=== PATIENT | male | born 1985 | race Caucasian/White ===

== ENCOUNTER 2018-07-31 19:45 | Inpatient (IN) | payer SELFPAY ==
[2018-07-31 20:40] LABS: Bilirubin Negative (Negative); Blood, Urine Moderate (Negative); Clarity CLEAR (Clear); Glucose, Urine (Dipstick) 250 mg/dL (Negative); Leukocyte Negative (Negative); Nitrite Negative (Negative); Protein, Urine (Dipstick) 300 mg/dL (Neg-Trace); Specific Gravity, Urine 1.013 (1.002-1.036); Urobilinogen 0.2 mg/dL (0.2-1.0); pH, Urine 6.5 (5.0-9.0)
[2018-07-31 20:41] LABS: Bacteria/HPF None Seen HPF (None Seen); Hyaline Casts/LPF 4-6 HYALINE CAST LPF (0-3 Hyaline); Pathc Cast-AUWi Flag 0.58 (0-2.49); Squamous Epithelial 0-3 HPF (0-3)
[2018-07-31 20:55] LABS: Acetaminophen Less than 6.0 mcg/mL (10.0-30.0); Alcohol Less than 10 mg/dL (Less than 10); Salicylate Less than 8.0 mg/dL (15.0-30.0)
[2018-07-31 20:59] LABS: CKMB 4.9 ng/mL (0-6.6)
[2018-07-31] MEDS ORDERED: Heparin 25,000 units/D5W 500 ML ONE (21:03)
[2018-07-31] MEDS ORDERED: Heparin 10,000 UNITS/ 10 ML VIAL SLOW IVP SCH (21:15)
[2018-07-31] MEDS ORDERED: Ondansetron PF 4 MG/2 ML Vial IVP PRN (21:16)
[2018-07-31] MEDS ORDERED: Nitroglycerin 0.4 MG TAB (25 Tab Bottle) PO PRN (21:21)
[2018-07-31] MEDS ORDERED: Aspirin 325 MG TAB PO SCH (21:30)
[2018-07-31] MEDS ORDERED: HumaLOG 300 UNITS/3 ML VIAL SC PRN (21:42)
[2018-07-31] MEDS ORDERED: Dextrose 5% in Water 1,000 ML IV PRN (21:42)
[2018-07-31] MEDS ORDERED: Dextrose 50% Abboject 50 ML SYRINGE SLOW IVP PRN (21:42)
--- NOTE | 2018-07-31 22:27 | HP ---
PRIMARY CARE PHYSICIAN: [facility]. TIME OF EVALUATION: 9:00 p.m. CODE STATUS: FULL CODE. CHIEF COMPLAINT: Chest pain. HISTORY OF PRESENT ILLNESS: This is a 32-year-old male patient, who has past medical history of hypertension, diabetes, came to the hospital after having sharp, severe, 10/10 chest pain that was retrosternal, radiating to the right upper extremity with no clear triggers, no alleviating factors. Symptoms started around 4:00 a.m., has been on and off, got so severe, he decided to go to the ER associated with sweating. REVIEW OF SYSTEMS: Constitutional: The patient had no fever, chills or generalized weakness. He did report some sweating with the pain. Respiratory: No cough. No shortness of breath. Cardiovascular: Chest pain, no palpitation. Gastrointestinal: No nausea, vomiting, diarrhea or abdominal pain. 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 Genitourinary: No burning with urination. Extremities: No leg swelling. All other systems were reviewed are negative except for the findings mentioned above. PAST MEDICAL HISTORY: Mentioned in the HPI. FAMILY HISTORY: The patient's mother has a history of CVA. Father has a history of heart problems. PAST SURGICAL HISTORY: No surgical history. PSYCHIATRIC HISTORY: No psych history. SOCIAL HISTORY: The patient has a history of alcoholism reported, but he quit 3 years ago. Currently uses marijuana and as well as cigarettes. ALLERGIES: No known drug allergies. REPORTED MEDICATIONS: None. PHYSICAL EXAMINATION: VITAL SIGNS: On presentation, blood pressure 223/124, heart rate 114, respiratory rate was 20. Pain was 5/10. GENERAL APPEARANCE: The patient is alert, oriented, no acute distress. HEENT: Normal. ENT: Moist oral mucosa, anicteric. NECK: No JVD. RESPIRATORY: Bilateral air entry. No rales, no wheezes. Symmetric expansion. CARDIOVASCULAR: Normal rate, regular rhythm. No murmurs, no gallop. No edema. The patient was hypertensive. ABDOMEN: Soft, normal bowel sounds. MUSCULOSKELETAL: Baseline range of motion and strength. No tenderness. SKIN: Warm and intact. No pallor, no rash, no redness. Peripheral pulses are present. Capillary refill seems to be intact. NEUROLOGIC: No evidence of any new focal weakness. Baseline speech. Cranial nerves seem to be intact. PSYCHIATRIC: The patient is in good mood. No anxiety, oriented, optimal judgment. IMAGING: EKG was reviewed by myself and discussed with the ER provider. The patient was in sinus tachycardia at the rate of 110. No evidence of any acute ischemic event. Chest x-ray was reviewed. The patient has no acute cardiopulmonary process. LABORATORY DATA: Reviewed. Hematology: White count 13.9, hemoglobin 12.4, MCV 82, platelet count 258. D-dimer was 0.56. Chemistry: Sodium 139, potassium 4.3, chloride 109, carbon dioxide was 22, anion gap 12, BUN 41, creatinine 5.68, glucose 115. Lactic acid 0.6, magnesium 2.2, AST 18, ALT 12. Troponin 0.010. Beta natriuretic peptide 251. Lipase was normal. Urine was done. The patient has a white count 4-6 with 7 rbc's. Toxicology was done. The patient has negative alcohol, acetaminophen, and salicylates. ASSESSMENT AND PLAN: The patient will be placed in the hospital with the following medical problems. 1. Hypertensive urgency. The patient has severe high blood pressure. The patient reportedly has no insurance, has not been taking medication for that reason. We will restart home meds, will put the patient on IV p.r.n. medications. 2. Chest pain, rule out acute coronary syndrome. The patient is diabetic, the patient has hypertension, we will do a stress test in the morning. Initial workup is negative. We will trend troponins and we will monitor on tele. 3. Diabetes is uncontrolled. Blood sugar 122. We will place the patient on sliding scale. 4. Chronic kidney disease, BUN 41, creatinine 5.68, we do not have previous creatinine to compare, we will hydrate, will monitor kidney function, might need Nephrology consistently. The patient is not improving. 5. Elevated D-dimer. The patient had a V/Q scheduled in a.m. placed inheparin drip for this reason, can be d/c if pe is ruled out. 6. Deep venous thrombosis prophylaxis. The patient has been placed on heparin drip, will continue for now. MTDD
[2018-07-31] MEDS: Sodium Chloride 0.9% 1,000 ML IV SCH (23:00)
[2018-07-31 23:43] LABS: Troponin I Less than 0.010 ng/mL (< 0.028)
[2018-07-31] MEDS ORDERED: Heparin 25,000 units/D5W 500 ML IV SCH (23:45)
[2018-07-31 23:46] VITALS: BMI 22.4
[2018-08-01] MEDS: Acetaminophen 325 MG TAB PO PRN ×2 (00:28→17:32)
[2018-08-01 02:38] LABS: #Basophils 0.1 thou/uL (0.0-0.2); #Eosinphils 0.4 thou/uL (0.0-0.7); #Lymphocytes 4.4 thou/uL (1.20-3.40); #Monocytes 0.5 thou/uL (0.11-0.59); #Neutrophils 5.7 thou/uL (1.40-6.50); %Basophils 0.9 % (0.0-1.0); %Eosinophils 3.2 % (0.0-10.0); %Lymphocytes 39.6 % (21.0-51.0); %Monocytes 4.9 % (0.0-10.0); %Neutrophils 51.4 % (42.0-75.0); Hemoglobin 9.3 g/dL (14.0-18.0); Mean Corpuscular HGB CONC 33.7 g/dL (32.0-36.0); Mean Corpuscular Hemoglobin 28.4 pg (27.0-31.0); Mean Corpuscular Volume 84.1 fL (78.0-98.0); Mean Platelet Volume 8.6 fL (7.4-10.4); Platelet Count 194 thou/uL (130-400); RBC Distribution Width 12.2 % (11.5-14.5); Red Blood Cell (RBC) Count 3.29 mill/uL (4.70-6.10); White Blood Cell (WBC) Count 11.1 thou/uL (4.8-10.8)
[2018-08-01 02:58] LABS: Troponin I Less than 0.010 ng/mL (< 0.028)
[2018-08-01 02:59] LABS: Anion Gap 11 mmol/L (10-20); BUN (Urea Nitrogen) 42 mg/dL (8.9-20.6); Calc. Creatinine Clearance 22 mL/min (70-130); Calcium 8.3 mg/dL (7.8-10.44); Carbon Dioxide 19 mmol/L (22-29); Chloride 112 mmol/L (98-107); Estimated GFR-MDRD 13; Glucose 184 mg/dL (70-105); Potassium 3.9 mmol/L (3.5-5.1); Sodium 138 mmol/L (136-145)
--- NOTE | 2018-08-01 03:23 | CON ---
DATE OF CONSULTATION: 07/31/2018 REASON FOR CONSULTATION: Elevated creatinine. HISTORY OF PRESENT ILLNESS: This is a 32-year-old gentleman with a history of diabetes mellitus with diabetic retinopathy, presented to the hospital for chest pain. The patient was noted to have a cre atinine of 5.6. The patient has not had a Nephrology followup in 1 year. The patient denies nausea, vomiting or chest pain. PAST MEDICAL HISTORY: Significant for diabetes mellitus with blindness, CKD, hypertension. FAMILY HISTORY: Negative for ESRD. ALLERGIES: Reviewed. HOME MEDICATIONS: Reviewed. REVIEW OF SYSTEMS: A 15-point review of systems was performed and negative except positives noted ab ove. General: Weakness. Head: Headache. Neck: No swelling or lumps. Nose: No epistaxis or dis charge. Eyes: No diplopia or pain. Respiratory: Dyspnea. Cardiovascular: Chest pain. Gastroint estinal: Nausea. /ELECTROMATIC TYPIST: Hematuria. Musculoskeletal: No joint pain. Neuropsychiatric systems: No suicidal ideation. No ideation. Skin: Denies any rash or ulcer. Constitutional: No fever or chills. PHYSICAL EXAMINATION: GENERAL: The patient is awake and alert. VITAL SIGNS: Afebrile, pulse 113, breathing at 16, blood pressure was 194/150. GENERAL APPEARANCE AND MENTAL STATUS: Fair. HEAD/NECK: Normocephalic. Atraumatic. EYES: EOMI. No deformity. EARS: Clear. No ulcers. NOSE: Intact. No lesions. MOUTH: Clear. No discharge. THROAT: Clear. No exudate. LUNGS: Clear. No crackles. CARDIAC: S1, S2. No rub. ABDOMEN: Benign. BS+. GENITALIA/RECTUM: Aguirre absent. BACK/EXTREMITIES: Edema 0+ Ulcer-. NEUROLOGICAL: Alert and motor intact. SKIN: Rash- Bruise-. LYMPHATICS: Edema- Ulcer-. LABORATORY DATA: Show creatinine 5.6. ASSESSMENT AND RECOMMENDATIONS: 1. Chronic kidney disease, stage 5, due to diabetic retinopathy. 2. Hypertension. Start calcium channel gustavo and beta gustavo and titrate. 3. Anemia, stable. No indication for dialysis at this time, but we will follow renal function closely. We will order im aging.
[2018-08-01] MEDS: Amlodipine 5 MG TAB PO SCH (08:56)
[2018-08-01] MEDS: Sodium Chloride 0.9% 1,000 ML IV SCH ×2 (08:56→17:07)
[2018-08-01] MEDS: Aspirin 325 MG TAB PO SCH (08:57)
[2018-08-01] MEDS ORDERED: Metoprolol Tartrate 25 MG TAB PO SCH (09:00)
[2018-08-01] MEDS ORDERED: Enoxaparin Sodium 40 MG/0.4 ML SYRINGE SC SCH (09:00)
--- NOTE | 2018-08-01 11:26 | ULT ---
BILATERAL RENAL ULTRASOUND: Date: 08/01/18 HISTORY: Chronic kidney disease. Diabetes x1 year. COMPARISON: None. TECHNIQUE: Sagittal and transverse imaging of the kidneys performed. FINDINGS: Both kidneys have a normal cortical echotexture. No hydronephrosis. Right kidney measures 4.0 x 6.2 x 11.2 cm. Left kidney measures 6.5 x 5.5 x 12.0 cm. Bilateral ureteral jets are noted. Unremarkable urinary bladder. Bladder volume is 865 mL. IMPRESSION: No hydronephrosis. POS: [facility]
--- NOTE | 2018-08-01 12:05 | PRG ---
DATE OF SERVICE: 08/01/2018 SUBJECTIVE: Patient was seen and examined at bedside and overnight events noted. Patient denies any shortness of breath or chest pain or palpitation. No history of nausea or vomiting or diarrhea or fever or chills or cramps. OBJECTIVE: GENERAL: This is a well-built male in no apparent distress. VITAL SIGNS: Temperature 98.8, respiratory rate 20. BP 134/78 HEENT: Atraumatic, normocephalic. Oral mucosa is moist. NECK: Supple. CARDIOVASCULAR: S1 and S2 heard. Rate and rhythm regular. RESPIRATORY: Clear to auscultation. GASTROINTESTINAL: Abdomen is soft. MUSCULOSKELETAL: No tenderness. No edema. DERMATOLOGIC: No skin rash. NEUROLOGIC: Alert and awake and oriented x3. No focal neurologic deficits. Moving all the extremities. PSYCHIATRIC: Mood and affect normal. LABORATORY DATA: Potassium is 3.9, BUN is 42, creatinine is 5.1. ASSESSMENT AND PLAN: 1. Acute kidney injury, on chronic kidney disease, stage 4. Renal function shows slight improvement, 5.6 to 5.1. We will monitor and continue IV fluids. Continue blood pressure control. We will follow. 2. Hypertension seems to be better. Continue to titrate medications. 3. Anemia, chronic. 4. Edema, controlled. We will monitor renal function, avoid nephrotoxins. MTDD
--- NOTE | 2018-08-01 12:13 | NM ---
VQ SCAN: Date: 08/01/18 HISTORY: Chest pain. TECHNIQUE: A ventilation perfusion scan was performed using 12.8 mCi Xenon-133 by inhalation for the ventilation study followed by the intravenous administration of 5.6 mCi technetium-99m MAA for the perfusion sca n. FINDINGS: Correlation is made with chest x-ray from previous evening. Homogeneous tracer distribution is seen in the lungs on the ventilation perfusion scan without mismat ched, pleural based, segmental/subsegmental, wedge-shaped perfusion defects. There is tracer retentio n in the lung brown on the washout phase of the ventilation study indicative of COPD. IMPRESSION: Very low probability for pulmonary embolism. POS: [facility]
--- NOTE | 2018-08-01 13:55 | PDOC.PN ---
- Subjective Encounter Start Date: 08/01/18 Encounter Start Time: 12:00 Patient lying in bed, he reports some mild chest discomfort. Denies shortness of breath or abdominal pain. Cr elevated at 5.12 this morning. Nephrology following, renal ultrasound unremarkable. - Objective Resuscitation Status: Resuscitation Status FULL:Full Resuscitation MAR Reviewed: Yes Vital Signs & Weight: Vital Signs (12 hours) Temp Pulse Resp BP BP Pulse Ox 08/01/18 12:01 97.8 F 85 16 165/88 H 99 08/01/18 08:56 89 08/01/18 07:57 98.1 F 89 16 169/99 H 99 08/01/18 02:20 98.1 F 57 L 16 151/85 H 98 Weight Admit Weight 165 lb 1.6 oz Weight 165 lb 1.6 oz I&O: 07/31/18 08/01/18 08/02/18 06:59 06:59 06:59 Intake Total 1655 Balance 1655 Result Diagrams: 08/01/18 02:22 08/01/18 02:22 Additional Labs: Accuchecks 08/01/18 08/01/18 07/31/18 11:04 05:57 23:13 POC Glucose 142 H 154 H 108 Radiology Reviewed by me: Yes EKG Reviewed by me: Yes Phys Exam - Physical Examination Constitutional: NAD HEENT: PERRLA, moist MMs, sclera anicteric, oral pharynx no lesions edentulous Neck: no nodes, no JVD, supple Respiratory: no wheezing, no rales, no rhonchi, clear to auscultation bilateral Cardiovascular: RRR, no significant murmur, no rub Gastrointestinal: soft, non-tender, no distention, positive bowel sounds Musculoskeletal: no edema, pulses present Neurological: non-focal, normal sensation, moves all 4 limbs Lymphatic: no nodes Psychiatric: normal affect, A&O x 3 Skin: no rash, normal turgor, cap refill <2 seconds Dx/Plan (1) Chronic kidney disease (CKD) Code(s): N18.9 - CHRONIC KIDNEY DISEASE, UNSPECIFIED Status: Acute (2) Chest pain Code(s): R07.9 - CHEST PAIN, UNSPECIFIED Status: Acute (3) Hypertension Code(s): I10 - ESSENTIAL (PRIMARY) HYPERTENSION Status: Acute - Plan cont current plan of care, DVT proph w/SCDs * VQ scan showed low probability for PE, d/c heparin * Await stress test for chest pain rule out * Continue home medications for HTN, monitor vitals with adjustments pending patient progress * Nephrology following for acute on CKD, continue IV fluids, hold nephrotoxins.
[2018-08-01] MEDS: hydrALAZINE 20 MG/ML VIAL SLOW IVP PRN (14:52)
--- NOTE | 2018-08-01 19:01 | PDOC.EVN ---
Event Note - Event Note Event Note: I have interviewed, examined, discussed and reviewed pt with DYAN Fitch regarding MIGUEL/CKD and HTN. Continue IVF's, avoid nephrotoxic meds and limit contrast exposure. Renal ultrasound unremarkable. Please see dictated H&P, previous progress notes for full details. LCTAB and no edema, BP labile. Titrate BP regimen. Serial Creatinine monitoring.
[2018-08-02] MEDS: Sodium Chloride 0.9% 1,000 ML IV SCH ×3 (00:04→18:20)
[2018-08-02] MEDS: Aspirin 325 MG TAB PO SCH (08:16)
[2018-08-02] MEDS: Amlodipine 5 MG TAB PO SCH (08:16)
[2018-08-02 09:10] LABS: #Basophils 0.1 thou/uL (0.0-0.2); #Eosinphils 0.3 thou/uL (0.0-0.7); #Lymphocytes 2.6 thou/uL (1.20-3.40); #Monocytes 0.5 thou/uL (0.11-0.59); #Neutrophils 7.3 thou/uL (1.40-6.50); %Basophils 0.6 % (0.0-1.0); %Eosinophils 2.6 % (0.0-10.0); %Lymphocytes 24.4 % (21.0-51.0); %Monocytes 4.3 % (0.0-10.0); %Neutrophils 68.1 % (42.0-75.0); Hemoglobin 10.9 g/dL (14.0-18.0); Mean Corpuscular HGB CONC 33.3 g/dL (32.0-36.0); Mean Corpuscular Hemoglobin 27.7 pg (27.0-31.0); Mean Corpuscular Volume 83.3 fL (78.0-98.0); Mean Platelet Volume 8.7 fL (7.4-10.4); Platelet Count 208 thou/uL (130-400); RBC Distribution Width 12.3 % (11.5-14.5); Red Blood Cell (RBC) Count 3.92 mill/uL (4.70-6.10); White Blood Cell (WBC) Count 10.7 thou/uL (4.8-10.8)
[2018-08-02 09:15] LABS: Anion Gap 12 mmol/L (10-20); BUN (Urea Nitrogen) 38 mg/dL (8.9-20.6); Calc. Creatinine Clearance 26 mL/min (70-130); Calcium 8.7 mg/dL (7.8-10.44); Carbon Dioxide 17 mmol/L (22-29); Chloride 114 mmol/L (98-107); Estimated GFR-MDRD 16; Glucose 120 mg/dL (70-105); Potassium 4.2 mmol/L (3.5-5.1); Sodium 139 mmol/L (136-145)
--- NOTE | 2018-08-02 10:00 | PRG ---
Patient Name: ROD GREGORY Date of service: 08/02/2018 Subjective: Patient was seen and examined at bedside and overnight events noted. Patient denies any shortness of breath or chest pain or palpitation. No history of nausea or vomiting or diarrhea or fever or chills or cramps. Objective: General: This is a well-built male in no apparent distress. Vital signs: Temperature 98.3, pulse 94, respiratory rate 16, blood pressure 186/89. HEENT: Atraumatic, normocephalic. Oral mucosa is moist. Neck: Supple. Cardiovascular: S1 S2 heard. Rate and rhythm regular. Respiratory: Clear to auscultation. Gastrointestinal: Abdomen is soft. Musculoskeletal: No tenderness. No edema. Dermatologic: No skin rash. Neurologic: Alert and awake and oriented X3. No focal neurologic deficits. Moving all the extremit ies. Psychiatric: Mood and affect normal. LABORATORY DATA: Potassium is 4.2, BUN 38, creatinine is 4.3. ASSESSMENT AND PLAN: 1. Acute kidney injury on chronic kidney stage 4 with improvement in creatinine. GFR is up to 16. Avoid nephrotoxins. 2. Hypertension, stable. 3. Anemia. Monitor. 4. Edema, controlled. 5. Renal ultrasound reviewed and shows no hydronephrosis. We will follow.
--- NOTE | 2018-08-02 12:13 | PDOC.PN ---
- Subjective Encounter Start Date: 08/02/18 Encounter Start Time: 08:00 Patient denies chest pain, shortness of breath, no events over night. Cr improved today to 4.3, GFR 16. Planning stress test tomorrow. - Objective MAR Reviewed: Yes Vital Signs & Weight: Vital Signs (12 hours) Temp Pulse Resp BP Pulse Ox 08/02/18 08:16 94 08/02/18 07:30 98.3 F 94 16 186/99 H 98 08/02/18 04:43 97.7 F 94 20 168/93 H 98 Weight Admit Weight 165 lb 1.6 oz Weight 164 lb 6.4 oz I&O: 08/01/18 08/02/18 08/03/18 06:59 06:59 06:59 Intake Total 1655 3623 Balance 1655 3629 Result Diagrams: 08/02/18 08:49 08/02/18 08:49 Additional Labs: Accuchecks 08/02/18 08/02/18 08/02/18 11:05 04:48 00:07 POC Glucose 147 H 110 128 H 08/01/18 16:50 POC Glucose 197 H Radiology Reviewed by me: Yes Phys Exam - Physical Examination Constitutional: NAD HEENT: PERRLA, moist MMs, oral pharynx no lesions Edentulous Neck: no nodes, no JVD, supple Respiratory: no wheezing, no rales, no rhonchi, clear to auscultation bilateral Cardiovascular: RRR, no significant murmur, no rub Gastrointestinal: soft, non-tender, no distention, positive bowel sounds Musculoskeletal: no edema, pulses present Neurological: non-focal, normal sensation, moves all 4 limbs Lymphatic: no nodes Psychiatric: normal affect, A&O x 3 Skin: normal turgor, cap refill <2 seconds Dx/Plan (1) Chronic kidney disease (CKD) Code(s): N18.9 - CHRONIC KIDNEY DISEASE, UNSPECIFIED Status: Acute (2) Chest pain Code(s): R07.9 - CHEST PAIN, UNSPECIFIED Status: Acute (3) Hypertension Code(s): I10 - ESSENTIAL (PRIMARY) HYPERTENSION Status: Acute - Plan cont current plan of care * BP elevated this morning, prior to morning meds, monitor closely and further adjustments pending progress * Nephrology following, monitor BMP, Cr 4.3, GFR 16 this morning, hold nephrotoxins, continue IV fluids * Await stress test tomorrow
[2018-08-02] MEDS: hydrALAZINE 20 MG/ML VIAL SLOW IVP PRN (20:09)
[2018-08-03] MEDS: Sodium Chloride 0.9% 1,000 ML IV SCH (04:13)
[2018-08-03] MEDS: Aspirin 325 MG TAB PO SCH (10:06)
[2018-08-03] MEDS: Amlodipine 5 MG TAB PO SCH (10:06)
--- NOTE | 2018-08-03 10:59 | NM ---
MYOCARDIAL PERFUSION SCAN WITH SPECT IMAGING: History: Chest pain. FINDINGS: Examination was performed using stress only study using 33 mCi Technetium 99M Sestamibi. This shows a normal distribution of radiopharmaceutical. No signs of ischemia. WALL MOTION: There is mild generalized hypokinesis present. LEFT VENTRICULAR EJECTION FRACTION: The calculated left ejection fraction is 38%. IMPRESSION: 1. No evidence of ischemia. 2. Left ventricular ejection fraction of 38%. No focal wall motion abnormalities are seen. Correlate with echocardiogram. POS: [facility]
[2018-08-03] MEDS: hydrALAZINE 20 MG/ML VIAL SLOW IVP PRN (11:39)
[2018-08-03] MEDS ORDERED: Labetalol HCl 100 MG/20 ML VIAL SLOW IVP PRN (13:39)
[2018-08-03] MEDS ORDERED: Metoprolol Tartrate 25 MG TAB PO SCH (14:15)
[2018-08-03 15:22] LABS: Anion Gap 10 mmol/L (10-20); BUN (Urea Nitrogen) 33 mg/dL (8.9-20.6); Calc. Creatinine Clearance 29 mL/min (70-130); Calcium 8.6 mg/dL (7.8-10.44); Carbon Dioxide 19 mmol/L (22-29); Chloride 113 mmol/L (98-107); Estimated GFR-MDRD 18; Glucose 126 mg/dL (70-105); Potassium 3.9 mmol/L (3.5-5.1); Sodium 138 mmol/L (136-145)
[2018-08-03] MEDS ORDERED: ADENOSINE 60 MG/20 ML VIAL ONE (15:26)
[2018-08-03] MEDS ORDERED: Sodium Chloride 0.9% 1,000 ML IV SCH (15:53)
--- NOTE | 2018-08-03 18:12 | PDOC.PN ---
- Subjective Encounter Start Date: 08/03/18 Encounter Start Time: 13:00 Patient lying in bed, he reports feeling better today with no events over night. He denies chest pain or shortness of breath. He underwent stress test which showed no signs of ischemia however did show EF low at 36%. - Objective Resuscitation Status - Order Detail: 08/02/18 12:26 Resuscitation Status Routine Resuscitation Status: FULL: Full Resuscitation Discussed with: Per previous order MAR Reviewed: Yes Vital Signs & Weight: Vital Signs (12 hours) Temp Pulse Resp BP BP Pulse Ox 08/03/18 17:27 178/85 H 08/03/18 15:28 98.0 F 96 16 184/103 H 183/107 H 99 08/03/18 11:26 97.8 F 100 20 205/108 H 100 Weight Admit Weight 165 lb 1.6 oz Weight 169 lb 14.4 oz I&O: 08/02/18 08/03/18 08/04/18 06:59 06:59 06:59 Intake Total 3629 1218 Balance 3629 1218 Result Diagrams: 08/02/18 08:49 08/03/18 14:53 Additional Labs: Accuchecks 08/03/18 08/03/18 08/02/18 11:35 05:04 21:30 POC Glucose 207 H 132 H 166 H Radiology Reviewed by me: Yes Phys Exam - Physical Examination Constitutional: NAD HEENT: PERRLA, oral pharynx no lesions Neck: no nodes, no JVD, supple Respiratory: no wheezing, no rales, clear to auscultation bilateral Cardiovascular: RRR, no significant murmur, no rub Gastrointestinal: soft, non-tender, no distention, positive bowel sounds Musculoskeletal: no edema, pulses present Neurological: non-focal, normal sensation, moves all 4 limbs Lymphatic: no nodes Psychiatric: normal affect, A&O x 3 Skin: no rash, normal turgor, cap refill <2 seconds Dx/Plan (1) Chronic kidney disease (CKD) Code(s): N18.9 - CHRONIC KIDNEY DISEASE, UNSPECIFIED Status: Acute (2) Chest pain Code(s): R07.9 - CHEST PAIN, UNSPECIFIED Status: Acute (3) Hypertension Code(s): I10 - ESSENTIAL (PRIMARY) HYPERTENSION Status: Acute - Plan cont current plan of care, DVT proph w/SCDs * Stress test reviewed with patient, echo cardiogram was ordered and showed EF 50-55%. * Nephrology services following for CKD, Cr improving with IV fluids * BP remains elevated, added PRN antihypertensives and BB therapy * Further medical management pending his progress
[2018-08-03] MEDS: Metoprolol Tartrate 25 MG TAB PO SCH (20:50)
[2018-08-04] MEDS: hydrALAZINE 20 MG/ML VIAL SLOW IVP PRN (05:32)
[2018-08-04 08:34] LABS: Anion Gap 12 mmol/L (10-20); BUN (Urea Nitrogen) 31 mg/dL (8.9-20.6); Calc. Creatinine Clearance 31 mL/min (70-130); Carbon Dioxide 17 mmol/L (22-29); Chloride 114 mmol/L (98-107); Estimated GFR-MDRD 18; Glucose 143 mg/dL (70-105); Potassium 4.1 mmol/L (3.5-5.1); Sodium 139 mmol/L (136-145)
[2018-08-04] MEDS: Metoprolol Tartrate 25 MG TAB PO SCH (08:49)
[2018-08-04] MEDS: Amlodipine 5 MG TAB PO SCH (08:50)
[2018-08-04] MEDS: Aspirin 325 MG TAB PO SCH (08:50)
[2018-08-04] MEDS ORDERED: Carvedilol 3.125 MG TAB PO SCH (09:12)
[2018-08-04] MEDS ORDERED: Carvedilol 6.25 MG TAB PO SCH ×2 (09:45→17:00)
[2018-08-04] MEDS ORDERED: hydrALAZINE 25 MG TAB PO SCH ×2 (09:45→21:00)
[2018-08-04 11:58] VITALS: TEMP 98.3
[2018-08-04 15:56] VITALS: BP 162/78
--- NOTE | 2018-08-04 22:50 | PRG ---
DATE OF SERVICE: 08/03/2018 SUBJECTIVE: Patient was seen and examined at bedside and overnight events noted. Patient denies any shortness of breath or chest pain or palpitation. No history of nausea or vomiting or diarrhea or fever or chills or cramps. OBJECTIVE: GENERAL: This is male, in no apparent distress. VITAL SIGNS: Temperature 97.8. Heart rate HEENT: Atraumatic, normocephalic. Oral mucosa is moist NECK: Supple. CARDIOVASCULAR: S1, S2 heard. Rate and rhythm regular. RESPIRATORY: Clear to auscultation. GASTROINTESTINAL: Abdomen is soft. MUSCULOSKELETAL: No tenderness. No edema. DERMATOLOGIC: No skin rash. NEUROLOGIC: Alert and awake and oriented X3. No focal neurologic deficits. Moving all the extremities. PSYCHIATRIC: Mood and affect normal. LABORATORY DATA: Potassium 3.9, BUN is 33, creatinine is 3.8. ASSESSMENT: 1. Acute kidney injury on chronic kidney disease . 2. Anemia . PLAN: We will continue to monitor. Job ID: [id number]
[2018-08-05] MEDS ORDERED: Amlodipine 10 MG TAB PO SCH (09:00)
--- NOTE | 2018-08-05 10:34 | PRG ---
DATE OF SERVICE: 08/04/2018 SUBJECTIVE: Patient was seen and examined at bedside and overnight events noted. Patient denies any shortness of breath or chest pain or palpitation. No history of nausea or vomiting or diarrhea or fever or chills or cramps. OBJECTIVE: GENERAL: This is a well-built male in no apparent distress. VITAL SIGNS: Temperature 97.6. Heart rate 97. Respiratory rate 16. Blood pressure 177/96. HEENT: Atraumatic, normocephalic. Oral mucosa is moist NECK: Supple. CARDIOVASCULAR: S1, S2 heard. Rate and rhythm regular. RESPIRATORY: Clear to auscultation. GASTROINTESTINAL: Abdomen is soft. MUSCULOSKELETAL: No tenderness. No edema. DERMATOLOGIC: No skin rash. NEUROLOGIC: Alert and awake and oriented X3. No focal neurologic deficits. Moving all the extremities. PSYCHIATRIC: Mood and affect normal. LABORATORY DATA: Potassium is 4.1, BUN is 31, creatinine is 3.7. ASSESSMENT AND PLAN: 1. Acute kidney injury on chronic kidney disease, stage 4. Renal function is stable. GFR of 18, close to his baseline. 2. Hypertension. We will stop IV fluids. Agree with adjusting medications. Agree with changing metoprolol to Carvedilol and . 3. Anemia. Monitor. 4. Edema, improved. 5. We will stop IV fluids and monitor. Job ID: [id number]
--- NOTE | 2018-08-06 16:18 | EKG ---
Test Reason : Blood Pressure : / mmHG Vent. Rate : 100 BPM Atrial Rate : 100 BPM P-R Int : 086 ms QRS Dur : 072 ms QT Int : 352 ms P-R-T Axes : 046 054 071 degrees QTc Int : 454 ms Sinus rhythm with short TX Otherwise normal ECG Confirmed by YANIRA HERNANDEZ ([id number]), non linear editor SHANELL DIETZ ([id number]) on 08/06/2018 4:17:49 PM Referred By: Confirmed By:YANIRA HERNANDEZ
== END 2018-08-04 16:51 | disposition home or self-care (01) | DRG 684 ==
LOC: ERS 19:45 → 2SW 21:57 → OBSVTOIN 21:57
PROVIDERS: ADMIT Hospitalist; ATTEND Hospitalist
DX: N17.9 Acute kidney failure, unspecified (principal); I16.0 Hypertensive urgency; N18.4 Chronic kidney disease, stage 4 (severe); F17.210 Nicotine dependence, cigarettes, uncomplicated; E11.65 Type 2 diabetes mellitus with hyperglycemia; E11.22 Type 2 diabetes mellitus with diabetic chronic kidney disease; R07.9 Chest pain, unspecified; E11.319 Type 2 diabetes mellitus with unspecified diabetic retinopathy without macular edema; D64.9 Anemia, unspecified; I12.9 Hypertensive chronic kidney disease with stage 1 through stage 4 chronic kidney disease, or unspecified chronic kidney disease; Z82.3 Family history of stroke; Z82.49 Family history of ischemic heart disease and other diseases of the circulatory system
CPT/HCPCS: 36415; 36416; 76770; 78452; 78582; 80048; 80307; 81003; 81015; 82553; 84484; 85025; 85730; 90471; 90686; 93005; 93017; 93306; 94760; 96365; 96375; A9500; A9540; A9558; G0008; J0153; J0360; J1644

== ENCOUNTER 2018-08-28 07:31 | Inpatient (IN) | payer OTHER, SELFPAY ==
[2018-08-28] MEDS ORDERED: CEFAZOLIN 2 GM/50 ML BAG ONE (08:37)
[2018-08-28] MEDS ORDERED: hydrALAZINE 20 MG/ML VIAL ONE (09:57)
--- NOTE | 2018-08-28 10:24 | ULT ---
LEFT LOWER EXTREMITY VENOUS DOPPLER ULTRASOUND: Date: 08/28/18 HISTORY: Left leg edema, erythema, cellulitis. TECHNIQUE: Churchill scale ultrasound with color flow and spectral Doppler imaging of the deep venous system of the l eft lower extremity is performed. FINDINGS: There is good flow, compression, and augmentation noted in the left common femoral, femoral, deep fem oral, popliteal, posterior tibial, and greater saphenous veins. Enlarged lymph nodes are seen in the left groin. IMPRESSION: No evidence of deep venous thrombosis in the left lower extremity. POS: [facility]
[2018-08-28] MEDS ORDERED: Ondansetron PF 4 MG/2 ML Vial IVP PRN (10:25)
[2018-08-28] MEDS ORDERED: Dextrose 50% Abboject 50 ML SYRINGE SLOW IVP PRN (10:30)
[2018-08-28] MEDS ORDERED: Dextrose 5% in Water 1,000 ML IV PRN (10:30)
[2018-08-28] MEDS ORDERED: Furosemide 100 MG/10 ML VIAL SLOW IVP SCH (10:45)
[2018-08-28 10:47] LABS: Bilirubin Negative (Negative); Blood, Urine Moderate (Negative); Clarity CLEAR (Clear); Glucose, Urine (Dipstick) 250 mg/dL (Negative); Leukocyte Negative (Negative); Nitrite Negative (Negative); Protein, Urine (Dipstick) 300 mg/dL (Neg-Trace); Specific Gravity, Urine 1.009 (1.002-1.036); Urobilinogen 0.2 mg/dL (0.2-1.0); pH, Urine 6.5 (5.0-9.0)
[2018-08-28 10:50] LABS: Bacteria/HPF None Seen HPF (None Seen); Hyaline Casts/LPF 0-3 HYALINE CAST LPF (0-3 Hyaline); Pathc Cast-AUWi Flag 0.14 (0-2.49); Squamous Epithelial 0-3 HPF (0-3)
[2018-08-28] MEDS ORDERED: Heparin 1,000 UNITS/ML VIAL ONE (11:11)
[2018-08-28] MEDS ORDERED: Sodium Bicarbonate 2.5 MEQ/5 ML VIAL ONE (11:43)
[2018-08-28] MEDS ORDERED: Sodium Bicarb 50 MEQ/50 ML VIAL ONE (11:44)
[2018-08-28] MEDS ORDERED: CEFAZOLIN/Water 2 GM/20 ML SYRINGE SLOW IVP SCH (11:45)
[2018-08-28] MEDS ORDERED: CEFAZOLIN 2 GM/50 ML-DEXTROSE 2 GM in Premix Bag 1 BAG IVPB SCH (12:00)
[2018-08-28 14:06] LABS: Hep B Core Total Ab Non-Reactive (NonReactive); Hep B Core Total Index 0.05 S/CO (0-0.79)
[2018-08-28 14:07] LABS: HBSAB Concentration 0.49 mIU/mL; HBSAg Index 0.27 S/CO (0-0.99); Hep B Surf AB Non-Reactive (NonReactive); Hep B Surf Ag Non-Reactive S/CO (NonReactive)
[2018-08-28 14:08] LABS: Hep C IgG Ab Non-Reactive (NonReactive); Hep C Index 0.03 S/CO (0-0.79)
--- NOTE | 2018-08-28 14:23 | HP ---
HISTORY OF PRESENT ILLNESS: Timothy Butler is a 32-year-old male transferred to this facility for end-stage renal disease, superimposed on chronic kidney disease. He has been seen by Dr. Davalos, I have been asked to see him regarding placing a cuffed-tunneled dialysis catheter. He has antecubital IV placed in the referring hospital, removed this on arrival to this facility. ALLERGIES: NONE. MEDICATIONS: 1. Insulin subcu. 2. Hydralazine 25 mg a day. 3. Amlodipine 25 mg 4 times a day. 4. Carvedilol 10 mg a day. 5. Insulin twice a day. PAST SURGICAL HISTORY: Noncontributory. SOCIAL HISTORY: Tobacco, a pack per day. Alcohol, rarely. The patient has worked construction in the past, but cannot due to retinopathy and partial blindness. He lives with friends. He is single, not . FAMILY HISTORY: Noncontributory. REVIEW OF SYSTEMS: Noncontributory. PAST MEDICAL HISTORY: 1. Diabetes mellitus, insulin dependent since he was 16 years of age. 2. Hypertension. PHYSICAL EXAMINATION: VITAL SIGNS: Blood pressure 194/110, pulse 105, respirations 21, temperature 98.3 degrees. Weight 72 kg. LUNGS: Clear to auscultation. CARDIAC: Regular rate and rhythm without murmur or gallop. ABDOMEN: Soft, nontender. IV in mid right forearm, recently moved from left IC. LABORATORY DATA: White count 13, hemoglobin 10. Sodium 136, potassium 5.3, BUN 73, creatinine 6.42, GFR 10. ASSESSMENT AND PLAN: 1. End-stage renal disease. Plan placement of a hemodialysis catheter. Also, we will plan placement of a central line as he had an antecubital IV on arrival, now has a right mid forearm IV in his cephalic vein. We will put a central line to protect his veins for future dialysis access. We will place hemodialysis catheter today and then plan placement of primary fistula in the next few days. He understands risks and benefits of the procedure and consents. 2. Insulin-dependent diabetes mellitus. 3. Hypertension. 4. Marijuana, frequent use. Job ID: [id number]
[2018-08-28] MEDS ORDERED: PROPOFOL 200 MG/20 ML VIAL ONE (15:05)
[2018-08-28] MEDS ORDERED: Lidocaine 1% PF 5 ML VIAL ONE (15:05)
--- NOTE | 2018-08-28 15:45 | ULT ---
BILATERAL UPPER EXTREMITY VENOUS DOPPLER ULTRASOUND: Date: 08/28/18 HISTORY: End-stage renal disease, dialysis access. FINDINGS: RIGHT UPPER EXTREMITY: The right cephalic vein measures 4.5 mm in the proximal arm, 4.1 mm in the mid arm, 5.5 mm in the dis kitty arm, 4.8 mm in the antecubital fossa, 5.5 mm in the proximal forearm, 2.9 mm in the mid forearm, and 1.8 mm in the distal forearm. The right basilic vein measures 4.2 mm in the proximal arm, 4.8 mm in the mid arm, 4.0 mm in the dist al arm, 2.7 mm in the antecubital fossa, 2.6 mm in the proximal forearm, 1.9 mm in the mid forearm, a nd 1.2 mm in the distal forearm. The right brachial artery measures 5.9 mm, radial artery measures 3.0 mm, and ulnar artery measures 2 .6 mm. LEFT UPPER EXTREMITY: The left cephalic vein measures 3.3 mm in the proximal arm, 3.3 mm in the mid arm, 4.8 mm in the dist al arm, 3.3 mm in the antecubital fossa, 3.5 mm in the proximal forearm, 3.5 mm in the mid forearm, a nd 2.3 mm in the distal forearm. The left basilic vein measures 3.9 mm in the proximal arm, 4.2 mm in the mid arm, 3.4 mm in the dista l arm, 4.0 mm in the antecubital fossa, 2.3 mm in the proximal forearm, 1.8 mm in the mid forearm, an d 0.8 mm in the distal forearm. The left brachial artery measures 4.9 mm, radial artery measures 2.6 mm, and ulnar artery measures 3. 0 mm. POS: [facility]
--- NOTE | 2018-08-28 16:55 | CON ---
DATE OF CONSULTATION: NEPHROLOGY CONSULT REASON FOR CONSULTATION: . HISTORY OF PRESENT ILLNESS: This is a very pleasant 32-year-old gentleman, who presented to the hospital with left lower extremity swelling as well as chronic kidney disease. The patient's creatinine has gradually increased from 5 to 6.4 today and his BUN has risen to 73, and the patient has very poor appetite. PAST MEDICAL HISTORY: Hypertension; diabetes mellitus; history of leg ulcers; history of CKD, stage 5; and noncompliance. MEDICATIONS: Home medication, list reviewed. Hospital medications, list reviewed. ALLERGIES: REVIEWED. REVIEW OF SYSTEMS: Fifteen-point review of systems was performed and was negative except for positives noted above. NECK: No swelling or lumps. NOSE: No epistaxis or discharge. EYES: No diplopia or pain. MUSCULOSKELETAL: No joint pain. NEUROPSYCHIATRIC SYSTEMS: No suicidal ideation. No ideation. SKIN: Denies any rash or ulcer. CONSTITUTIONAL: No fever or chills. PHYSICAL EXAMINATION: CONSTITUTIONAL: On examination, the patient is awake, alert. VITAL SIGNS: Afebrile, pulse 90, breathing is 16, and blood pressure 173/93. GENERAL APPEARANCE AND MENTAL STATUS: Fair. HEAD/NECK: Normocephalic. Atraumatic. EYES: EOMI. No deformity. EARS: Clear. No ulcers. NOSE: Intact. No lesions. MOUTH: Clear. No discharge. THROAT: Clear. No exudate. LUNGS: Clear. No crackles. CARDIAC: S1, S2. No rub. ABDOMEN: Benign. Bowel sounds positive. GENITALIA/RECTUM: Aguirre absent. BACK/EXTREMITIES: Edema 0+. NEUROLOGICAL: Alert and motor intact. LABORATORY DATA: Labs showed potassium 5.3, bicarb 16, creatinine 6.4. ASSESSMENT AND PLAN: 1. End-stage renal disease with progressive rise in creatinine dialysis. 2. Hyperkalemia, plan dialysis. 3. Metabolic acidosis, . 4. Anemia. Continue Epogen. No indications for transfusion. 5. We will consult General Surgery for catheter placement. Job ID: [id number]
--- NOTE | 2018-08-28 18:25 | HP ---
CHIEF COMPLAINT: Not feeling well. HISTORY OF PRESENT ILLNESS: This is a 32-year-old male, who went to an outside ER stating that he was not feeling well, had laboratory workup performed and was found to have a creatinine of 6.4, extremely glucose, high anion gap, concerning for acute renal failure, transferred to [facility] ER for further advancement and high level of care. The patient currently states that he has some nausea as well as reduction in urine output; however, states that he still urinates 4 to 5 times a day. The patient states that he has been not very complaint with his medications, states that he was having some swelling in his legs for about 3 to 4 weeks and worsening of his overall physical condition, stating he just was not feeling well, so he decided to come to the ER. 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 The patient states that he is a heavy smoker, has been smoking since the age of 14 approximately 1 to 2 packs a day for the past 18 years. The patient states that he is not aware of any heart disease that he may have, just simply aware of the fact that he is hypertensive, diabetic as well as having vasculopathy and blindness in one eye. The patient was seen and examined in the ER. No family at bedside, all questions answered. REVIEW OF SYSTEMS: All systems reviewed, pertinent positives in the HPI, otherwise negative. MEDICATIONS: 1. Hydralazine 25 p.o. q.i.d. 2. Amlodipine 10 mg p.o. daily. 3. Aspirin 325 mg p.o. daily. 4. Carvedilol 6.25 mg p.o. daily. Of note, the patient was asked if he takes any insulin medications. He states that he is not sure what he takes. These were the medications that were found on previous medical reconciliation forms. PAST MEDICAL HISTORY: Diabetes, diabetic vasculopathy, diabetic nephropathy, diabetic retinopathy, and hypertension. PAST SURGICAL HISTORY: None. SOCIAL HISTORY: The patient is living with a friend, admits to alcohol socially as well as smoking 1 to 2 packs a day for more than 16 years. ALLERGIES: NONE. PHYSICAL EXAMINATION: VITAL SIGNS: Blood pressure 175/105, heart rate of 105, respiratory rate of 18, and temperature of 98. GENERAL: The patient appears in mild discomfort. HEENT: Pupils equal, round, reactive to light and accommodation. He denies no visual acuity or any sense of perception in the left eye. Appears to be completely blind in the left eye. Normocephalic and atraumatic. Oral cavity moist and pink. NECK: Supple, mobile, nontender thyroid. CARDIOVASCULAR: Tachycardic rate. S1 and S2. 2/6 systolic ejection murmur appreciated. PULMONARY: Clear to auscultation bilaterally. No respiratory distress. ABDOMINAL: Positive bowel sounds. Soft and nontender. EXTREMITIES: 2+ peripheral pulses noted. No loss of motor function. 2+ bilateral lower extremities pitting edema noted. NEUROLOGIC: Cranial nerves 2 through 12 intact. Loss of sensation in his feet bilaterally as well as the soles of the feet. LABORATORY DATA: Laboratory ewing, CBC, WBC count of 13, hemoglobin was 10 otherwise normal. Basic metabolic panel shows a potassium of 5.3, bicarbonate of 16, anion gap of 20, creatinine of 6.42, and glucose of 244. B-natriuretic peptide is 305. Albumin is 3.3, otherwise, normal BMP. A vascular ultrasound was performed, which was negative for DVT of his left lower extremity. ASSESSMENT AND PLAN: 1. Acute kidney injury upon chronic kidney disease versus progression of end stage renal disease secondary to diabetic nephropathy. 2. Diabetes mellitus type 2, uncontrolled. 3. Diabetic retinopathy. 4. Diabetic nephropathy with proteinuria. 5. Bilateral lower extremity edema. 6. Vasculopathy. 7. Metabolic acidosis secondary to renal failure. 8. Metabolic bone disease. 9. Hypertension. PLAN: 1. At this point in time, we will admit the patient to IMCU. Consultation with Nephrology had already placed in the ER start dialysis. 2. We will also obtain PTH and phosphorus levels and start patient on binders as his phosphorus levels are elevated. 3. We will also check iron studies to make sure there is no component of iron deficiency anemia playing any role. 4. Start the patient on sliding scale as well as obtaining a baseline A1c one-time reading of 224. We will hold off on starting the patient on any insulin given that he does have renal failure, and his propensity to accumulate insulin will be very high, this may cause him to go hypoglycemic. We will continue sliding scale for now. If A1c elevated, we will probably start him on Lantus 10 units daily and then adjust basal this as appropriate. 5. Deep vein thrombosis prophylaxis with heparin 5000 units q.12. 6. A long conversation was held with the patient about code status. He says that he does not want to be hooked up to any machines, does state that if it is between live and , he will prefer to take dialysis; however, does not want to be intubated under anyway, any conditions, nor does he want any chest compressions done. We will place the patient as a DNR/DNI per the patient's wishes and await input from Nephrology and start dialysis as needed. The case and plan discussed with the patient at length. He understands and agrees with this plan. Job ID: [id number]
[2018-08-28] MEDS ORDERED: Ondansetron HCl/PF 4 MG/2 ML Vial IVP PRN (19:01)
[2018-08-28] MEDS ORDERED: Promethazine HCl 25 MG/ML VIAL SLOW IVP PRN (19:01)
[2018-08-28] MEDS ORDERED: Promethazine HCl 25 MG/ML VIAL IM PRN (19:01)
--- NOTE | 2018-08-28 20:00 | RAD ---
PORTABLE CHEST: HISTORY: Central line placement. FINDINGS: Heart size is within normal limits for the portable technique. A right-sided HemoSplit catheter is s een. The catheter tip overlies the distal superior vena cava. No signs of pneumothorax. The lungs are clear of any infiltrates. IMPRESSION: Right-sided HemoSplit catheter, with the catheter tip overlying the distal superior vena cava and rig ht atrium junction. No signs of pneumothorax. POS: [facility]
[2018-08-28] MEDS: Heparin 5,000 UNITS/ML VIAL SC SCH (20:50)
[2018-08-28] MEDS: Carvedilol 6.25 MG TAB PO SCH (20:50)
[2018-08-28] MEDS: cloNIDine 0.1 MG TAB PO PRN (20:50)
--- NOTE | 2018-08-28 21:05 | OP ---
DATE OF PROCEDURE: 08/28/2018 PREOPERATIVE DIAGNOSES: End-stage renal disease, insulin-dependent diabetes mellitus, retinopathy, partial blindness, IV antecubital from the referring hospital moved to the right mid forearm removed postoperatively. POSTOPERATIVE DIAGNOSES: End-stage renal disease, insulin-dependent diabetes mellitus, retinopathy, partial blindness, IV antecubital from the referring hospital moved to the right mid forearm removed postoperatively. PROCEDURES PERFORMED: Right internal jugular cuffed tunneled hemodialysis catheter, left internal jugular central line. ANESTHESIA: TIVA with local of 0.5% Marcaine with epinephrine 30 mL mixed with 2% xylocaine 10 mL. Ultrasound fluoroscopy used. DESCRIPTION OF PROCEDURE: The patient was taken to the operating room, where in the supine position, neck and chest were prepped with ChloraPrep, draped in routine fashion. Local anesthetic was infiltrated in the skin and subcutaneous tissue about the operative site. Ultrasound guidance was used to cannulate the right and left internal jugular veins. The patient's J-wire was removed and trocar and catheter and enlarged skin site sharply. Stab incision was made over the right chest at the planned exit site of the hemodialysis catheter. Using the tunneling device, the hemodialysis catheter tunneled between the two incisions on the right, placed in the fabric cuff in the skin exit site and securing the catheter with interrupted sutures of 3-0 nylon. Biopatch sterile dressing applied. Smaller and medium-sized dilators were placed with J-wire and the internal jugular vein removed. Dilator and Peel-Away sheath placed with J-wire into superior vena cava and J-wire and dilator removed. Catheter placed through the Peel-Away sheath. Peel-Away sheath removed. Platysma was approximated with 4-0 Monocryl, skin with subdermal 4-0 Monocryl, and [place]-glue applied. Each port aspirated off blood, flushed with saline solution, and heparinized saline solution 1000 units heparin per mL indicating volume of the port. Seldinger technique was used to place a left internal jugular vein triple-lumen catheter, removed the J-wire, secured with interrupted suture of 3-0 nylon and Biopatch sterile dressing applied. Fluoroscopy revealed good line placement on both sides. The patient tolerated the procedure well. Job ID: [id number]
[2018-08-28 21:08] VITALS: BMI 24.3
[2018-08-28 21:16] LABS: Troponin I Less than 0.010 ng/mL (< 0.028)
[2018-08-29] MEDS: Acetaminophen 325 MG TAB PO PRN (05:58)
[2018-08-29 06:30] LABS: #Basophils 0.1 thou/uL (0.0-0.2); #Eosinphils 0.3 thou/uL (0.0-0.7); #Lymphocytes 2.3 thou/uL (1.20-3.40); #Monocytes 0.7 thou/uL (0.11-0.59); #Neutrophils 6.8 thou/uL (1.40-6.50); %Basophils 0.8 % (0.0-1.0); %Eosinophils 2.7 % (0.0-10.0); %Lymphocytes 22.7 % (21.0-51.0); %Monocytes 6.9 % (0.0-10.0); %Neutrophils 66.9 % (42.0-75.0); Hemoglobin 9.1 g/dL (14.0-18.0); Mean Corpuscular HGB CONC 33.4 g/dL (32.0-36.0); Mean Platelet Volume 8.3 fL (7.4-10.4); Platelet Count 231 thou/uL (130-400); RBC Distribution Width 12.3 % (11.5-14.5); Red Blood Cell (RBC) Count 3.23 mill/uL (4.70-6.10); White Blood Cell (WBC) Count 10.1 thou/uL (4.8-10.8)
[2018-08-29 06:33] LABS: Hemoglobin A1c 6.5 % (4.0-6.0)
[2018-08-29 06:51] LABS: Anion Gap 14 mmol/L (10-20); BUN (Urea Nitrogen) 44 mg/dL (8.9-20.6); Calc. Creatinine Clearance 24 mL/min (70-130); Calcium 8.7 mg/dL (7.8-10.44); Carbon Dioxide 23 mmol/L (22-29); Chloride 107 mmol/L (98-107); Estimated GFR-MDRD 14; Glucose 85 mg/dL (70-105); Iron 31 ug/dL (65-175); Iron Binding Capacity, Total 183 mcg/dL (261-462); Phosphorus 4.8 mg/dL (2.3-4.7); Potassium 3.9 mmol/L (3.5-5.1); Sodium 140 mmol/L (136-145)
[2018-08-29] MEDS ORDERED: Aspirin 325 MG TAB PO SCH (08:00)
[2018-08-29] MEDS: Amlodipine 10 MG TAB PO SCH (08:42)
[2018-08-29] MEDS: Heparin 5,000 UNITS/ML VIAL SC SCH ×2 (08:42→21:50)
[2018-08-29] MEDS: Carvedilol 6.25 MG TAB PO SCH ×2 (08:42→18:00)
--- NOTE | 2018-08-29 12:32 | PRG ---
DATE OF SERVICE: 08/29/2018 SUBJECTIVE: A 32-year-old gentleman being seen for end-stage renal disease. The patient denies any nausea, vomiting, or chest pain. OBJECTIVE: CONSTITUTIONAL: On examination, the patient is awake and alert, in no acute distress. VITAL SIGNS: Afebrile, pulse 94, breathing 16, and blood pressure 146/85. GENERAL APPEARANCE AND MENTAL STATUS: Fair. HEAD/NECK: Normocephalic. Atraumatic. EYES: EOMI. No deformity. EARS: Clear. No ulcers. NOSE: Intact. No lesions. MOUTH: Clear. No discharge. THROAT: Clear. No exudate. LUNGS: Clear. No crackles. CARDIAC: S1, S2. No rub. ABDOMEN: Benign. Bowel sounds positive. GENITALIA/RECTUM: Aguirre absent. BACK/EXTREMITIES: Edema 0+. NEUROLOGICAL: Alert and motor intact. LABORATORY DATA: Labs show hemoglobin 9.1. Creatinine 4.6. ASSESSMENT: 1. Stage 5 chronic kidney disease, plan dialysis. 2. Hypertension, stable. 3. Anemia, stable. 4. Medications based on glomerular filtration rate are appropriate. Job ID: [id number]
--- NOTE | 2018-08-29 13:40 | PDOC.PN ---
- Subjective Encounter Start Date: 08/29/18 Encounter Start Time: 13:38 Subjective: seen & examined in HD.feels well. -: mild pain at ctahter site in r neck.no CP/SOB - Objective Resuscitation Status - Order Detail: 08/28/18 10:41 Resuscitation Status Routine Resuscitation Status: DNAR: NO Resuscitation Discussed with: Patient Additional comments: Patient states the only machine he'd like to be on if needed is the dialysis machine, otherwise states that he does not want to have chest compressions or intubation MAR Reviewed: Yes Vital Signs & Weight: Vital Signs (12 hours) Temp Pulse Resp BP BP BP Pulse Ox 08/29/18 11:03 99.0 F 94 16 146/85 H 98 08/29/18 08:42 97 171/95 H 08/29/18 07:46 98.0 F 97 16 133/70 98 08/29/18 05:00 100 155/89 H 08/29/18 04:52 98.6 F 94 12 173/96 H 96 Weight Weight 169 lb 8 oz I&O: 08/28/18 08/29/18 08/30/18 06:59 06:59 06:59 Intake Total 500 Output Total 1350 Balance -850 Result Diagrams: 08/29/18 06:00 08/29/18 06:00 Additional Labs: Accuchecks 08/29/18 08/29/18 08/28/18 10:33 05:53 20:42 POC Glucose 86 91 113 H Laboratory Tests 07/31/18 08/01/18 08/02/18 11:46 02:22 08:49 Creatinine 5.68 H 5.12 H 4.30 H Hemoglobin A1c Iron TIBC % Saturation Troponin I B-Natriuretic Peptide PTH Intact 08/03/18 08/04/18 08/28/18 14:53 08:04 06:05 Creatinine 3.87 H 3.79 H 6.42 H Hemoglobin A1c Iron TIBC % Saturation Troponin I B-Natriuretic Peptide PTH Intact 08/28/18 08/28/18 08/28/18 08:07 08:07 20:36 Creatinine Hemoglobin A1c Iron TIBC % Saturation Troponin I Less than 0.010 Less than 0.010 B-Natriuretic Peptide 305.4 H PTH Intact 08/29/18 08/29/18 08/29/18 06:00 06:00 06:00 Creatinine 4.68 H Hemoglobin A1c 6.5 H Iron 31 L TIBC 183 L % Saturation 17 L Troponin I B-Natriuretic Peptide PTH Intact 90.7 H Microbiology 08/28/18 10:01 Urine voided Urine Culture - Preliminary NO GROWTH AT 24 HOURS 08/28/18 09:47 Leg - Left Bacterial Culture - Preliminary Staphylococcus aureus 08/28/18 08:12 Venous blood - Left Arm Blood Culture - Preliminary Specimen has been received and culture in progress. No Growth to date. 08/28/18 08:07 Venous blood - Left Arm Blood Culture - Preliminary Specimen has been received and culture in progress. No Growth to date. Phys Exam - Physical Examination Constitutional: NAD appears older than stated age HEENT: PERRLA, moist MMs, sclera anicteric, oral pharynx no lesions Neck: no nodes, no JVD, supple, full ROM Respiratory: no wheezing, no rales, no rhonchi, clear to auscultation bilateral Cardiovascular: RRR, no significant murmur Gastrointestinal: soft, non-tender, no distention, positive bowel sounds Musculoskeletal: pulses present, edema present Large eythematous purulent lesion on Left yanes w dressing Neurological: non-focal, normal sensation, moves all 4 limbs Psychiatric: normal affect, A&O x 3 Skin: no rash Dx/Plan (1) Acute kidney injury superimposed on CKD Code(s): N17.9 - ACUTE KIDNEY FAILURE, UNSPECIFIED; N18.9 - CHRONIC KIDNEY DISEASE, UNSPECIFIED Status: Acute (2) Uncontrolled diabetes mellitus Code(s): E11.65 - TYPE 2 DIABETES MELLITUS WITH HYPERGLYCEMIA Status: Chronic Qualifiers: Diabetes mellitus type: type 2 (3) Chronic kidney disease (CKD) Code(s): N18.9 - CHRONIC KIDNEY DISEASE, UNSPECIFIED Status: Chronic Qualifiers: Chronic kidney disease stage: on chronic dialysis Qualified Code(s): N18.6 - End stage renal disease; Z99.2 - Dependence on renal dialysis (4) Hypertension Code(s): I10 - ESSENTIAL (PRIMARY) HYPERTENSION Status: Chronic (5) Anemia in chronic kidney disease Code(s): N18.9 - CHRONIC KIDNEY DISEASE, UNSPECIFIED; D63.1 - ANEMIA IN CHRONIC KIDNEY DISEASE Status: Chronic - Plan PT/OT, out of bed/ambulate, DVT proph w/SCDs cont hemodialysis w monitoring of lytes,renal function -: code status discussed again & he still wants to be DNR?DNI> -: will get wound care for leg wound.+ve for Terrycaylatresa cotaminant -: cont ASA,BB,amlodipine. Add GLENN-I when renal Fx stabilizes. -: ISS & accuchecks. * .Dialysis fistula likely on Wednesday. * am labs * Add Epogen Review of Systems - Review of Systems Constitutional: weakness. negative: fever, chills, sweats, malaise, other ENT: negative: Ear Pain, Ear Discharge, Nose Pain, Nose Discharge, Nose Congestion, Mouth Pain, Mouth Swelling, Throat Pain, Throat Swelling, Other Respiratory: negative: Cough, Dry, Shortness of Breath, Hemoptysis, SOB with Excertion, Pleuritic Pain, Sputum, Wheezing Cardiovascular: negative: chest pain, palpitations, orthopnea, paroxysmal nocturnal dyspnea, edema, light headedness, other Gastrointestinal: negative: Nausea, Vomiting, Abdominal Pain, Diarrhea, Constipation, Melena, Hematochezia, Other Genitourinary: negative: Dysuria, Frequency, Incontinence, Hematuria, Retention , Other Neurological: negative: Weakness, Numbness, Incoordination, Change in Speech, Confusion, Seizures, Other - Medications/Allergies Allergies/Adverse Reactions: Allergies Allergy/AdvReac Type Severity Reaction Status Date / Time No Known Drug Allergies Allergy Verified 07/31/18 23:49 Medications: Current Medications Acetaminophen (Tylenol) 650 mg PO Q4H PRN PRN Reason: Headache/Fever/Mild Pain (1-3) Last Admin: 08/29/18 05:58 Dose: 650 mg Amlodipine Besylate (Norvasc) 10 mg PO DAILY [facility] Last Admin: 08/29/18 08:42 Dose: 10 mg Aspirin (Aspirin Chewable) 81 mg PO QAM-[facility] Last Admin: 08/29/18 08:42 Dose: 81 mg Carvedilol (Coreg) 6.25 mg PO BID-[facility] Last Admin: 08/29/18 08:42 Dose: 6.25 mg Clonidine (Catapres) 0.1 mg PO Q4H PRN PRN Reason: FOR SBP > 170mmHg Last Admin: 08/28/18 20:50 Dose: 0.1 mg Dextrose/Water (Dextrose 50%) 25 gm SLOW IVP PRN PRN PRN Reason: Hypoglycemia Glucagon (Glucagon) 1 mg IM PRN PRN PRN Reason: Hypoglycemia Heparin Sodium (Porcine) (Heparin) 5,000 units SC BID [facility] Last Admin: 08/29/18 08:42 Dose: 5,000 units Dextrose/Water (D5w) 1,000 mls @ 0 mls/hr IV .Q0M PRN PRN Reason: Hypoglycemia Cefazolin Sodium/Dextrose 2 gm (/ Device) 50 mls @ 100 mls/hr IVPB [facility] Insulin Human Lispro (Humalog) 0 units SC .MILD SLIDING SCALE PRN PRN Reason: Mild Correctional Scale Ondansetron HCl (Zofran) 4 mg IVP Q6H PRN PRN Reason: Nausea/Vomiting Sodium Chloride (Flush - Normal Saline) 10 ml IVF PRN PRN PRN Reason: Saline Flush
--- NOTE | 2018-08-29 15:20 | CON ---
DATE OF CONSULTATION: 08/29/2018 SERVICE: Pulmonary Medicine. REASON FOR CONSULT: CU patient. HISTORY OF PRESENT ILLNESS: The patient is a 32-year-old with a past medical history significant for longstanding poorly-controlled type 2 diabetes mellitus. He was in his usual state of health when he ultimately started feeling lousy for a couple of weeks. He has longstanding kidney disease. In the emergency department, he had findings consistent with an exacerbation of his longstanding kidney problems. Ultimately, he was declared end-stage renal disease and a temporary dialysis catheter was placed last night. Today, he is going for dialysis. He is already starting to feel much improved. He denies any current fevers, chills, nausea, or vomiting. He would not bring up any sputum, and denies nausea, vomiting, or diarrhea. He did not have any hot, red, swollen joints, or new rashes. PAST MEDICAL HISTORY: 1. Type 2 diabetes mellitus. 2. Diabetic neuropathy. 3. Diabetic retinopathy. 4. Peripheral vascular disease. 5. Hypertension. PAST SURGICAL HISTORY: Right IJ tunneled vas-cath placement. SOCIAL HISTORY: He has a [id number] history of smoking. He drinks socially. He denies any street drugs. He has no exposure to chemicals, dust, asbestos, or tuberculosis, otherwise. FAMILY HISTORY: Noncontributory. ALLERGIES: NO KNOWN DRUG ALLERGIES. MEDICATIONS: List of medications was reviewed. No specific updates were made at this time. REVIEW OF SYSTEMS: General; head, ears, eyes, nose, and throat; cardiovascular; respiratory; GI; ; musculoskeletal; neurologic; and skin are negative except as mentioned in the HPI. PHYSICAL EXAMINATION: VITAL SIGNS: Afebrile, pulse 94, blood pressure 146/85, respirations 16, and saturation 98% on room air. GENERAL: The patient is awake and alert, in no apparent distress. LUNGS: Excellent air entry. Dependent crackles are noted. No prolonged expiratory phase or wheezing is appreciated. HEART: Normal rate, regular. ABDOMEN: Soft, nontender, and nondistended. Bowel sounds are positive. MUSCULOSKELETAL: No cyanosis or clubbing. There is 2+ pitting in bilateral lower extremities. NEUROLOGIC: Grossly nonfocal. LABORATORY DATA: WBC 10.1, hemoglobin 9.1, and platelets are 231,000. Creatinine 4.68. Basic metabolic profile and liver function studies are otherwise unremarkable. Hemoglobin A1c 6.5. Urinalysis is positive for a little bit of blood and very few white blood cells. There is also glycosuria and proteinuria. Hepatitis B and C serologies were unremarkable. Wound culture of the leg is growing Staph aureus, but blood cultures x2 and urine culture are negative. IMAGING DATA: Echocardiogram demonstrates a normal ejection fraction. Chest x-ray demonstrates no acute cardiopulmonary abnormality. There is an interval placement of a right IJ tunneled vas-cath placed. ASSESSMENT: 1. End-stage renal disease. 2. Hypertension. 3. Type 2 diabetes mellitus, poorly controlled. DISCUSSION AND PLAN: The patient has tolerated dialysis on 2 occasions now. As such, he can be transitioned out of the IMCU to the medical unit. I will repeat laboratories tomorrow morning. The patient will not have any further requirements for inpatient Pulmonary Critical Care opinion once he leaves the [facility]. At that point, we will sign off. 70 minutes have been devoted to this patient in various activities. I personally reviewed all imaging studies and laboratory data noted within this document. For fifty percent of this time, I was interacting with the patient at the bedside or coordinating care with the care team. For the remainder of the time I was immediately available to the patient in the hospital unit. Job ID: [id number] [id number]
[2018-08-29] MEDS: Epoetin (ESRD) 20,000 UNITS/ML SC SCH (19:03)
[2018-08-30 05:45] LABS: Anion Gap 12 mmol/L (10-20); BUN (Urea Nitrogen) 30 mg/dL (8.9-20.6); Calc. Creatinine Clearance 30 mL/min (70-130); Calcium 8.6 mg/dL (7.8-10.44); Carbon Dioxide 27 mmol/L (22-29); Chloride 105 mmol/L (98-107); Estimated GFR-MDRD 19; Glucose 119 mg/dL (70-105); Magnesium 1.9 mg/dL (1.6-2.6); Potassium 3.8 mmol/L (3.5-5.1); Sodium 140 mmol/L (136-145)
[2018-08-30] MEDS: Heparin 5,000 UNITS/ML VIAL SC SCH ×2 (08:46→20:36)
[2018-08-30] MEDS: Amlodipine 10 MG TAB PO SCH (08:47)
[2018-08-30] MEDS: Carvedilol 6.25 MG TAB PO SCH ×2 (08:47→18:01)
--- NOTE | 2018-08-30 11:10 | PDOC.PN ---
- Subjective Encounter Start Date: 08/30/18 Encounter Start Time: 11:09 Subjective: feels well.no newcomplaints -: no N/V. - Objective Resuscitation Status - Order Detail: 08/28/18 10:41 Resuscitation Status Routine Resuscitation Status: DNAR: NO Resuscitation Discussed with: Patient Additional comments: Patient states the only machine he'd like to be on if needed is the dialysis machine, otherwise states that he does not want to have chest compressions or intubation MAR Reviewed: Yes Vital Signs & Weight: Vital Signs (12 hours) Temp Pulse Resp BP BP Pulse Ox 08/30/18 08:47 97 162/89 H 08/30/18 08:18 99.0 F 97 16 162/89 H 99 08/30/18 08:00 99.0 F 08/30/18 04:00 98.3 F 89 16 136/77 93 L 08/29/18 23:45 98.2 F 91 16 125/76 99 Weight Weight 169 lb 8 oz I&O: 08/29/18 08/30/18 08/31/18 06:59 06:59 06:59 Intake Total 500 940 240 Output Total 1350 1100 Balance -850 -160 240 Result Diagrams: 08/29/18 06:00 08/30/18 05:10 Additional Labs: Accuchecks 08/30/18 08/29/18 04:34 20:10 POC Glucose 103 193 H Microbiology 08/28/18 10:01 Urine voided Urine Culture - Final 08/28/18 09:47 Leg - Left Bacterial Culture - Final Staphylococcus aureus 08/28/18 08:12 Venous blood - Left Arm Blood Culture - Preliminary Specimen has been received and culture in progress. No Growth to date. 08/28/18 08:07 Venous blood - Left Arm Blood Culture - Preliminary Specimen has been received and culture in progress. No Growth to date. Phys Exam - Physical Examination Constitutional: NAD HEENT: PERRLA, moist MMs, sclera anicteric, oral pharynx no lesions Neck: no nodes, no JVD, supple, full ROM Respiratory: no wheezing, no rales, no rhonchi, clear to auscultation bilateral Cardiovascular: RRR, no significant murmur Gastrointestinal: soft, non-tender, no distention, positive bowel sounds Musculoskeletal: no edema, pulses present left anteroir leg wound Neurological: non-focal, normal sensation, moves all 4 limbs Psychiatric: normal affect, A&O x 3 Dx/Plan (1) Acute kidney injury superimposed on CKD Code(s): N17.9 - ACUTE KIDNEY FAILURE, UNSPECIFIED; N18.9 - CHRONIC KIDNEY DISEASE, UNSPECIFIED Status: Acute Comment: started on HD (2) Uncontrolled diabetes mellitus Code(s): E11.65 - TYPE 2 DIABETES MELLITUS WITH HYPERGLYCEMIA Status: Chronic Qualifiers: Diabetes mellitus type: type 2 (3) Leg wound, left Code(s): S81.802A - UNSPECIFIED OPEN WOUND, LEFT LOWER LEG, INITIAL ENCOUNTER Status: Acute (4) Chronic kidney disease (CKD) Code(s): N18.9 - CHRONIC KIDNEY DISEASE, UNSPECIFIED Status: Chronic Qualifiers: Chronic kidney disease stage: on chronic dialysis Qualified Code(s): N18.6 - End stage renal disease; Z99.2 - Dependence on renal dialysis (5) Hypertension Code(s): I10 - ESSENTIAL (PRIMARY) HYPERTENSION Status: Chronic (6) Anemia in chronic kidney disease Code(s): N18.9 - CHRONIC KIDNEY DISEASE, UNSPECIFIED; D63.1 - ANEMIA IN CHRONIC KIDNEY DISEASE Status: Chronic - Plan DVT proph w/SCDs wound Cx showsStaph but likley a skin contaminanat.given severe DM,will add -: POdoxycycline.no evidence of sepsis. -: HDpernephrology -: F[place] tomorrow ,the needs to have OP HDset up -: Hemodynamically stable.AMlabs * . Review of Systems - Review of Systems Constitutional: negative: fever, chills, sweats, weakness, malaise, other ENT: negative: Ear Pain, Ear Discharge, Nose Pain, Nose Discharge, Nose Congestion, Mouth Pain, Mouth Swelling, Throat Pain, Throat Swelling, Other Respiratory: negative: Cough, Dry, Shortness of Breath, Hemoptysis, SOB with Excertion, Pleuritic Pain, Sputum, Wheezing Cardiovascular: negative: chest pain, palpitations, orthopnea, paroxysmal nocturnal dyspnea, edema, light headedness, other Gastrointestinal: negative: Nausea, Vomiting, Abdominal Pain, Diarrhea, Constipation, Melena, Hematochezia, Other Genitourinary: negative: Dysuria, Frequency, Incontinence, Hematuria, Retention , Other Neurological: negative: Weakness, Numbness, Incoordination, Change in Speech, Confusion, Seizures, Other - Medications/Allergies Allergies/Adverse Reactions: Allergies Allergy/AdvReac Type Severity Reaction Status Date / Time No Known Drug Allergies Allergy Verified 07/31/18 23:49 Medications: Current Medications Acetaminophen (Tylenol) 650 mg PO Q4H PRN PRN Reason: Headache/Fever/Mild Pain (1-3) Last Admin: 08/29/18 05:58 Dose: 650 mg Amlodipine Besylate (Norvasc) 10 mg PO DAILY [facility] Last Admin: 08/30/18 08:47 Dose: 10 mg Aspirin (Aspirin Chewable) 81 mg PO QAM-[facility] Last Admin: 08/30/18 08:47 Dose: 81 mg Carvedilol (Coreg) 6.25 mg PO BID-[facility] Last Admin: 08/30/18 08:47 Dose: 6.25 mg Clonidine (Catapres) 0.1 mg PO Q4H PRN PRN Reason: FOR SBP > 170mmHg Last Admin: 08/28/18 20:50 Dose: 0.1 mg Dextrose/Water (Dextrose 50%) 25 gm SLOW IVP PRN PRN PRN Reason: Hypoglycemia Doxycycline Hyclate (Vibramycin) 100 mg PO BID [facility] Epoetin Rodrigo (Procrit) 7,500 units SC MOWEFR [facility] Last Admin: 08/29/18 19:03 Dose: 7,500 units Glucagon (Glucagon) 1 mg IM PRN PRN PRN Reason: Hypoglycemia Heparin Sodium (Porcine) (Heparin) 5,000 units SC BID [facility] Last Admin: 08/30/18 08:46 Dose: 5,000 units Dextrose/Water (D5w) 1,000 mls @ 0 mls/hr IV .Q0M PRN PRN Reason: Hypoglycemia Cefazolin Sodium/Dextrose 2 gm (/ Device) 50 mls @ 100 mls/hr IVPB WILLCALL [facility] Insulin Human Lispro (Humalog) 0 units SC .MILD SLIDING SCALE PRN PRN Reason: Mild Correctional Scale Ondansetron HCl (Zofran) 4 mg IVP Q6H PRN PRN Reason: Nausea/Vomiting Sodium Chloride (Flush - Normal Saline) 10 ml IVF PRN PRN PRN Reason: Saline Flush
--- NOTE | 2018-08-30 11:27 | PRG ---
DATE OF SERVICE: 08/30/2018 SUBJECTIVE: A 32-year-old gentleman is being seen for end-stage renal disease. The patient denies any nausea, vomiting, or chest pain. OBJECTIVE: CONSTITUTIONAL: The patient is awake and alert. VITAL SIGNS: Afebrile. Pulse 97, breathing 16, blood pressure 136/77. GENERAL APPEARANCE AND MENTAL STATUS: Fair. HEAD/NECK: Normocephalic. Atraumatic. EYES: EOMI. No deformity. EARS: Clear. No ulcers. NOSE: Intact. No lesions. MOUTH: Clear. No discharge. THROAT: Clear. No exudate. LUNGS: Clear. No crackles. CARDIAC: S1, S2. No rub. ABDOMEN: Benign. Bowel sounds positive. GENITALIA/RECTUM: Aguirre absent. LABORATORY DATA: Creatinine 3.7. ASSESSMENT AND PLAN: 1. Chronic kidney disease, stage 6, stable. 2. Hypertension, stable. 3. Anemia, stable. 4. Medications based on glomerular filtration rate are appropriate. Discharge planning is in progress. Job ID: [id number]
[2018-08-30] MEDS ORDERED: Doxycycline 100 MG CAP PO SCH (12:00)
[2018-08-30] MEDS: HumaLOG 300 UNITS/3 ML VIAL SC PRN (12:36)
[2018-08-30] MEDS: Doxycycline 100 MG CAP PO SCH (20:36)
[2018-08-31] MEDS: Carvedilol 6.25 MG TAB PO SCH ×2 (04:48→16:30)
[2018-08-31 06:20] LABS: Anion Gap 12 mmol/L (10-20); BUN (Urea Nitrogen) 35 mg/dL (8.9-20.6); Calc. Creatinine Clearance 25 mL/min (70-130); Calcium 8.4 mg/dL (7.8-10.44); Carbon Dioxide 27 mmol/L (22-29); Chloride 106 mmol/L (98-107); Estimated GFR-MDRD 15; Glucose 154 mg/dL (70-105); Potassium 3.6 mmol/L (3.5-5.1); Sodium 141 mmol/L (136-145)
[2018-08-31] MEDS: Heparin 5,000 UNITS/ML VIAL SC SCH ×2 (08:19→20:27)
[2018-08-31] MEDS: Amlodipine 10 MG TAB PO SCH (08:19)
[2018-08-31] MEDS: Doxycycline 100 MG CAP PO SCH ×2 (08:21→20:23)
[2018-08-31] MEDS ORDERED: Carvedilol 6.25 MG TAB PO SCH ×2 (08:58→09:30)
[2018-08-31] MEDS ORDERED: Heparin 10,000 UNITS/ 10 ML VIAL ONE (12:00)
--- NOTE | 2018-08-31 12:00 | PRG ---
DATE OF SERVICE: 08/31/2018 SUBJECTIVE: A 33-year-old gentleman being seen for end-stage renal disease. The patient denies any nausea, vomiting, or chest pain. OBJECTIVE: CONSTITUTIONAL: The patient is awake and alert. VITAL SIGNS: Afebrile, pulse 92, breathing 16, and blood pressure 152/82. GENERAL APPEARANCE AND MENTAL STATUS: Fair. HEAD/NECK: Normocephalic. Atraumatic. EYES: EOMI. No deformity. EARS: Clear. No ulcers. NOSE: Intact. No lesions. MOUTH: Clear. No discharge. THROAT: Clear. No exudate. LUNGS: Clear. No crackles. CARDIAC: S1, S2. No rub. ABDOMEN: Benign. Bowel sounds positive. GENITALIA/RECTUM: Aguirre absent. BACK/EXTREMITIES: Edema 0+. NEUROLOGICAL: Alert and motor intact. LABORATORY DATA: Labs show hemoglobin 9.1, creatinine 12.5. ASSESSMENT AND PLAN: 1. Stage 6 chronic kidney disease, plan dialysis. 2. Hypertension, stable. 3. Anemia, stable. 4. Medication based on glomerular filtration rate, appropriate. Job ID: [id number]
--- NOTE | 2018-08-31 12:52 | PDOC.PN ---
- Subjective Encounter Start Date: 08/31/18 Encounter Start Time: 12:50 Subjective: seen and exmained in HD.no new complaints - Objective Resuscitation Status - Order Detail: 08/28/18 10:41 Resuscitation Status Routine Resuscitation Status: DNAR: NO Resuscitation Discussed with: Patient Additional comments: Patient states the only machine he'd like to be on if needed is the dialysis machine, otherwise states that he does not want to have chest compressions or intubation MAR Reviewed: Yes Vital Signs & Weight: Vital Signs (12 hours) Temp Pulse Resp BP BP Pulse Ox 08/31/18 08:19 92 08/31/18 08:06 98.1 F 92 16 152/82 H 98 08/31/18 04:48 153/89 H 08/31/18 04:47 93 18 182/75 H 08/31/18 03:57 98.4 F 89 16 128/80 96 Weight Weight 169 lb 8 oz I&O: 08/30/18 08/31/18 09/01/18 06:59 06:59 06:59 Intake Total 940 1480 Output Total 1100 Balance -160 1480 Result Diagrams: 08/29/18 06:00 08/31/18 05:05 Additional Labs: Accuchecks 08/31/18 08/30/18 08/30/18 04:56 20:39 16:51 POC Glucose 161 H 223 H 154 H Phys Exam - Physical Examination Constitutional: NAD HEENT: PERRLA, moist MMs, sclera anicteric, oral pharynx no lesions Neck: no nodes, no JVD, supple, full ROM Respiratory: no wheezing, no rales, no rhonchi, clear to auscultation bilateral Cardiovascular: RRR, no significant murmur, no rub Gastrointestinal: soft, non-tender, no distention, positive bowel sounds Musculoskeletal: no edema, pulses present Dx/Plan (1) Acute kidney injury superimposed on CKD Code(s): N17.9 - ACUTE KIDNEY FAILURE, UNSPECIFIED; N18.9 - CHRONIC KIDNEY DISEASE, UNSPECIFIED Status: Acute Comment: started on HD (2) Uncontrolled diabetes mellitus Code(s): E11.65 - TYPE 2 DIABETES MELLITUS WITH HYPERGLYCEMIA Status: Chronic Qualifiers: Diabetes mellitus type: type 2 (3) Leg wound, left Code(s): S81.802A - UNSPECIFIED OPEN WOUND, LEFT LOWER LEG, INITIAL ENCOUNTER Status: Acute Comment: Empiric Doxycycline.doubt infected.Positive Cx likley a skin contaminant (4) Chronic kidney disease (CKD) Code(s): N18.9 - CHRONIC KIDNEY DISEASE, UNSPECIFIED Status: Chronic Qualifiers: Chronic kidney disease stage: on chronic dialysis Qualified Code(s): N18.6 - End stage renal disease; Z99.2 - Dependence on renal dialysis (5) Hypertension Code(s): I10 - ESSENTIAL (PRIMARY) HYPERTENSION Status: Chronic (6) Anemia in chronic kidney disease Code(s): N18.9 - CHRONIC KIDNEY DISEASE, UNSPECIFIED; D63.1 - ANEMIA IN CHRONIC KIDNEY DISEASE Status: Chronic - Plan DVT proph w/SCDs HD fistula Sx today.hemodynamically stable. -: Outpt hemodilayis needs to be set up -: cont to monitor renal Fx * . Review of Systems - Review of Systems Constitutional: negative: fever, chills, sweats, weakness, malaise, other Respiratory: negative: Cough, Dry, Shortness of Breath, Hemoptysis, SOB with Excertion, Pleuritic Pain, Sputum, Wheezing Cardiovascular: negative: chest pain, palpitations, orthopnea, paroxysmal nocturnal dyspnea, edema, light headedness, other Gastrointestinal: negative: Nausea, Vomiting, Abdominal Pain, Diarrhea, Constipation, Melena, Hematochezia, Other Genitourinary: negative: Dysuria, Frequency, Incontinence, Hematuria, Retention , Other Musculoskeletal: negative: Neck Pain, Shoulder Pain, Arm Pain, Back Pain, Hand Pain, Leg Pain, Foot Pain, Other Neurological: negative: Weakness, Numbness, Incoordination, Change in Speech, Confusion, Seizures, Other - Medications/Allergies Allergies/Adverse Reactions: Allergies Allergy/AdvReac Type Severity Reaction Status Date / Time No Known Drug Allergies Allergy Verified 07/31/18 23:49 Medications: Current Medications Acetaminophen (Tylenol) 650 mg PO Q4H PRN PRN Reason: Headache/Fever/Mild Pain (1-3) Last Admin: 08/29/18 05:58 Dose: 650 mg Amlodipine Besylate (Norvasc) 10 mg PO DAILY [facility] Last Admin: 08/31/18 08:19 Dose: Not Given Aspirin (Aspirin Chewable) 81 mg PO [facility] Last Admin: 08/31/18 08:20 Dose: Not Given Carvedilol (Coreg) 12.5 mg PO BID-[facility] Clonidine (Catapres) 0.1 mg PO Q4H PRN PRN Reason: FOR SBP > 170mmHg Last Admin: 08/28/18 20:50 Dose: 0.1 mg Dextrose/Water (Dextrose 50%) 25 gm SLOW IVP PRN PRN PRN Reason: Hypoglycemia Doxycycline Hyclate (Vibramycin) 100 mg PO BID [facility] Last Admin: 08/31/18 08:21 Dose: 100 mg Epoetin Rodrigo (Procrit) 7,500 units SC MOWEFR [facility] Last Admin: 08/29/18 19:03 Dose: 7,500 units Glucagon (Glucagon) 1 mg IM PRN PRN PRN Reason: Hypoglycemia Heparin Sodium (Porcine) (Heparin) 5,000 units SC BID [facility] Last Admin: 08/31/18 08:19 Dose: Not Given Dextrose/Water (D5w) 1,000 mls @ 0 mls/hr IV .Q0M PRN PRN Reason: Hypoglycemia Cefazolin Sodium/Dextrose 2 gm (/ Device) 50 mls @ 100 mls/hr IVPB WILLCALL [facility] Insulin Human Lispro (Humalog) 0 units SC .MILD SLIDING SCALE PRN PRN Reason: Mild Correctional Scale Last Admin: 08/30/18 12:36 Dose: 2 unit Ondansetron HCl (Zofran) 4 mg IVP Q6H PRN PRN Reason: Nausea/Vomiting Sodium Chloride (Flush - Normal Saline) 10 ml IVF PRN PRN PRN Reason: Saline Flush
[2018-08-31] MEDS: Epoetin (ESRD) 20,000 UNITS/ML SC SCH (14:39)
[2018-08-31] MEDS ORDERED: Bupivacaine HCl 0.5%/Epinephrine 1:200,000/PF 30 ml Vial ONE (19:03)
[2018-08-31] MEDS ORDERED: Protamine Sulfate 50 MG/5 ML VIAL ONE (19:03)
[2018-08-31] MEDS ORDERED: Heparin 5,000 UNITS/ML VIAL ONE (19:03)
[2018-08-31] MEDS ORDERED: Lidocaine 2% PF 5 ML VIAL ONE (19:03)
[2018-08-31] MEDS ORDERED: CEFAZOLIN/Water 2 GM/20 ML SYRINGE SLOW IVP SCH (19:30)
--- NOTE | 2018-08-31 19:58 | PRG ---
DATE OF SERVICE: 08/31/2018 Mr. Aguirre has had dialysis fistula planned tonight, but there were too many emergencies in the hospital and at this late hour, his surgery will be postponed until . He can resume his diet Wednesday and start n.p.o. after Wednesday night for surgery . Job ID: [id number]
[2018-08-31] MEDS: cloNIDine 0.1 MG TAB PO PRN (20:22)
[2018-09-01 06:22] LABS: Anion Gap 11 mmol/L (10-20); BUN (Urea Nitrogen) 19 mg/dL (8.9-20.6); Calc. Creatinine Clearance 32 mL/min (70-130); Calcium 8.6 mg/dL (7.8-10.44); Carbon Dioxide 29 mmol/L (22-29); Chloride 105 mmol/L (98-107); Estimated GFR-MDRD 20; Glucose 132 mg/dL (70-105); Potassium 3.9 mmol/L (3.5-5.1); Sodium 141 mmol/L (136-145)
[2018-09-01] MEDS: Carvedilol 6.25 MG TAB PO SCH ×2 (08:32→17:43)
[2018-09-01] MEDS: Amlodipine 10 MG TAB PO SCH (08:35)
[2018-09-01] MEDS: Heparin 5,000 UNITS/ML VIAL SC SCH ×2 (08:37→20:40)
[2018-09-01] MEDS: Doxycycline 100 MG CAP PO SCH ×2 (08:41→20:39)
--- NOTE | 2018-09-01 08:46 | PRG ---
DATE OF SERVICE: 09/01/2018 Mr. Butler was scheduled for an AV fistula yesterday, but the OR schedule was backed up and it was too late and we rescheduled him for today. He is n.p.o. We will plan a right arm AV fistula and he can be discharged home postoperatively if he is ready to go home from other medical standpoints. What I am doing today is usually an outpatient operation. He should follow up in my office in 3 to 4 weeks postoperatively. Job ID: [id number]
[2018-09-01] MEDS ORDERED: CEFAZOLIN 2 GM/50 ML BAG ONE (09:13)
[2018-09-01] MEDS ORDERED: Midazolam HCl 2 mg/2 ml Vial ONE (10:27)
[2018-09-01] MEDS ORDERED: Fentanyl 100 MCG/2 ML VIAL ONE ×2 (10:28→10:38)
[2018-09-01] MEDS ORDERED: Propofol 500 MG/50 ML VIAL ONE (10:38)
[2018-09-01] MEDS ORDERED: Heparin 5,000 UNITS/ML VIAL ONE (10:41)
[2018-09-01] MEDS ORDERED: Bupivacaine HCl 0.5%/Epinephrine 1:200,000/PF 30 ml Vial ONE ×2 (10:41→20:53)
[2018-09-01] MEDS ORDERED: Lidocaine 2% PF 5 ML VIAL ONE (10:41)
[2018-09-01] MEDS ORDERED: Protamine Sulfate 50 MG/5 ML VIAL ONE (11:42)
[2018-09-01] MEDS ORDERED: Promethazine HCl 25 MG/ML VIAL SLOW IVP PRN (11:46)
[2018-09-01] MEDS ORDERED: Promethazine HCl 25 MG/ML VIAL IM PRN (11:46)
[2018-09-01] MEDS ORDERED: PACU-Morphine 4MG/ML VIAL SLOW IVP PRN (11:46)
[2018-09-01] MEDS ORDERED: Ondansetron HCl/PF 4 MG/2 ML Vial IVP PRN (11:46)
[2018-09-01] MEDS ORDERED: Meperidine HCl/PF 25 MG/ML VIAL SLOW IVP PRN (11:46)
--- NOTE | 2018-09-01 12:05 | PRG ---
DATE OF SERVICE: 09/01/2018 SUBJECTIVE: A 33-year-old gentleman, being seen for end-stage renal disease. The patient denies any nausea, vomiting, or chest pain. OBJECTIVE: CONSTITUTIONAL: The patient is awake and alert, in no acute distress. VITAL SIGNS: Afebrile, pulse 65, breathing 16, blood pressure 127/95. GENERAL APPEARANCE AND MENTAL STATUS: Fair. HEAD/NECK: Normocephalic. Atraumatic. EYES: EOMI. No deformity. EARS: Clear. No ulcers. NOSE: Intact. No lesions. MOUTH: Clear. No discharge. THROAT: Clear. No exudate. LUNGS: Clear. No crackles. CARDIAC: S1, S2. No rub. ABDOMEN: Benign. Bowel sounds positive. GENITALIA/RECTUM: Aguirre absent. BACK/EXTREMITIES: Edema 0+. NEUROLOGICAL: Alert and motor intact. SKIN: LYMPHATICS: LABORATORY DATA: Labs show hemoglobin 9.1. Creatinine 14. ASSESSMENT AND RECOMMENDATIONS: 1. Stage 6 chronic kidney disease, plan dialysis. 2. Hypertension, stable. 3. Anemia, stable. 4. Medications based on GFR, appropriate. Job ID: [id number]
--- NOTE | 2018-09-01 14:48 | OP ---
DATE OF PROCEDURE: 09/01/2018 PREOPERATIVE DIAGNOSIS: End-stage renal disease. POSTOPERATIVE DIAGNOSIS: End-stage renal disease. PROCEDURE: Right seminal fistula. ANESTHESIA: Regional TIVA. FINDINGS: Good cephalic vein accommodating coronary dilators to a 3.5 mm dilator without restriction. DESCRIPTION OF PROCEDURE: The patient was taken to the operating room, where under regional anesthesia and intravenous sedation, his right upper extremity was prepared with ChloraPrep and draped in routine fashion. An incision was made longitudinally between the cephalic vein and radial artery, and carried down through skin and subcutaneous tissue, and the radial artery and cephalic vein dissected free and the patient was given a 5000 units of heparin intravenously. After adequate circulation time, the radial artery was clamped proximally and distally. A longitudinal arteriotomy was made sharply and elongated with Luna scissors for 2.5 cm anastomosis and vein accordingly spatulated, and the end vein to side radial artery anastomosis was created with continuous suture of 6-0 Prolene. After completing the anastomosis, released the vascular clamps on a good cephalic vein outflow with a doppler signal. Good hemostasis was noted. The patient was given 25 mg of protamine intravenously. Subcutaneous tissue was approximated with 3-0 Monocryl, skin with subdermal 4-0 Monocryl, and Arbuckle glue applied. Job ID: [id number]
[2018-09-01] MEDS ORDERED: Heparin 10,000 UNITS/ 10 ML VIAL ONE (20:39)
[2018-09-02] MEDS: Acetaminophen 325 MG TAB PO PRN (06:01)
[2018-09-02 06:58] LABS: Anion Gap 10 mmol/L (10-20); BUN (Urea Nitrogen) 23 mg/dL (8.9-20.6); Calc. Creatinine Clearance 27 mL/min (70-130); Calcium 8.9 mg/dL (7.8-10.44); Carbon Dioxide 27 mmol/L (22-29); Chloride 105 mmol/L (98-107); Estimated GFR-MDRD 16; Glucose 120 mg/dL (70-105); Potassium 4.1 mmol/L (3.5-5.1); Sodium 138 mmol/L (136-145)
[2018-09-02] MEDS: Doxycycline 100 MG CAP PO SCH ×2 (08:55→21:07)
[2018-09-02] MEDS: Carvedilol 6.25 MG TAB PO SCH ×2 (11:17→18:33)
[2018-09-02] MEDS: Heparin 5,000 UNITS/ML VIAL SC SCH ×2 (11:18→21:08)
[2018-09-02] MEDS: Amlodipine 10 MG TAB PO SCH (11:18)
[2018-09-02] MEDS ORDERED: HumuLIN 70/30 (300 UNITS/3 ML VIAL) SC SCH ×2 (12:27→12:28)
[2018-09-02] MEDS: hydrALAZINE 25 MG TAB PO SCH ×3 (12:46→21:07)
--- NOTE | 2018-09-02 13:38 | PDOC.PN ---
- Subjective Encounter Start Date: 09/02/18 Encounter Start Time: 14:00 Subjective: pt up in bed no complains - Objective Resuscitation Status - Order Detail: 08/28/18 10:41 Resuscitation Status Routine Resuscitation Status: DNAR: NO Resuscitation Discussed with: Patient Additional comments: Patient states the only machine he'd like to be on if needed is the dialysis machine, otherwise states that he does not want to have chest compressions or intubation Vital Signs & Weight: Vital Signs (12 hours) Temp Pulse Resp BP BP BP Pulse Ox 09/02/18 12:46 90 09/02/18 11:18 90 173/100 H 09/02/18 11:17 173/100 H 09/02/18 11:00 98.1 F 90 18 173/100 H 100 09/02/18 08:00 100 09/02/18 07:15 98.2 F 86 18 144/78 H 99 Weight Admit Weight 169 lb 8 oz Weight 169 lb 8 oz I&O: 09/01/18 09/02/18 09/03/18 06:59 06:59 06:59 Intake Total 450 1150 Balance 450 1150 Result Diagrams: 08/29/18 06:00 09/02/18 06:23 Additional Labs: Accuchecks 09/02/18 09/02/18 09/01/18 11:09 04:14 20:02 POC Glucose 190 H 118 H 217 H 09/01/18 16:48 POC Glucose 152 H Phys Exam - Physical Examination Neck: no nodes, no JVD, supple, full ROM Respiratory: no wheezing, no rales, no rhonchi, wheezing present, clear to auscultation bilateral Cardiovascular: RRR, no significant murmur, no rub, gallop, irregular Dx/Plan (1) Acute kidney injury superimposed on CKD Code(s): N17.9 - ACUTE KIDNEY FAILURE, UNSPECIFIED; N18.9 - CHRONIC KIDNEY DISEASE, UNSPECIFIED Status: Acute Comment: started on HD (2) Leg wound, left Code(s): S81.802A - UNSPECIFIED OPEN WOUND, LEFT LOWER LEG, INITIAL ENCOUNTER Status: Acute Comment: Empiric Doxycycline.doubt infected.Positive Cx likley a skin contaminant (3) Anemia in chronic kidney disease Code(s): N18.9 - CHRONIC KIDNEY DISEASE, UNSPECIFIED; D63.1 - ANEMIA IN CHRONIC KIDNEY DISEASE Status: Chronic (4) Uncontrolled diabetes mellitus Code(s): E11.65 - TYPE 2 DIABETES MELLITUS WITH HYPERGLYCEMIA Status: Chronic Qualifiers: Diabetes mellitus type: type 2 - Plan will continue abx for now -: nurse called nephrology ok for dicharge but no dialysis has been set up -: will hold discharge once pt's dialysis has been set up * . Review of Systems - Review of Systems Respiratory: negative: Cough, Dry, Shortness of Breath, Hemoptysis, SOB with Excertion, Pleuritic Pain, Sputum, Wheezing Cardiovascular: negative: chest pain, palpitations, orthopnea, paroxysmal nocturnal dyspnea, edema, light headedness, other Gastrointestinal: negative: Nausea, Vomiting, Abdominal Pain, Diarrhea, Constipation, Melena, Hematochezia, Other - Medications/Allergies Allergies/Adverse Reactions: Allergies Allergy/AdvReac Type Severity Reaction Status Date / Time No Known Drug Allergies Allergy Verified 07/31/18 23:49 Medications: Current Medications Acetaminophen (Tylenol) 650 mg PO Q4H PRN PRN Reason: Headache/Fever/Mild Pain (1-3) Last Admin: 09/02/18 06:01 Dose: 650 mg Amlodipine Besylate (Norvasc) 10 mg PO DAILY [facility] Last Admin: 09/02/18 11:18 Dose: 10 mg Aspirin (Aspirin Chewable) 81 mg PO QAM-[facility] Last Admin: 09/02/18 08:55 Dose: 81 mg Carvedilol (Coreg) 12.5 mg PO BID-[facility] Last Admin: 09/02/18 11:17 Dose: 12.5 mg Cefazolin Sodium (Ancef) 2 gm SLOW IVP ONCALL-[facility] Clonidine (Catapres) 0.1 mg PO Q4H PRN PRN Reason: FOR SBP > 170mmHg Last Admin: 08/31/18 20:22 Dose: 0.1 mg Dextrose/Water (Dextrose 50%) 25 gm SLOW IVP PRN PRN PRN Reason: Hypoglycemia Doxycycline Hyclate (Vibramycin) 100 mg PO BID [facility] Last Admin: 09/02/18 08:55 Dose: 100 mg Epoetin Rodrigo (Procrit) 7,500 units SC MOWEFR [facility] Last Admin: 08/31/18 14:39 Dose: 7,500 units Gabapentin (Neurontin) 300 mg PO [facility] Glucagon (Glucagon) 1 mg IM PRN PRN PRN Reason: Hypoglycemia Heparin Sodium (Porcine) (Heparin) 5,000 units SC BID [facility] Last Admin: 09/02/18 11:18 Dose: Not Given Hydralazine HCl (Apresoline) 25 mg PO QID [facility] Last Admin: 09/02/18 12:46 Dose: Not Given Dextrose/Water (D5w) 1,000 mls @ 0 mls/hr IV .Q0M PRN PRN Reason: Hypoglycemia Insulin Human Isoph/Insulin Regular (Humulin 70/30) 10 units SC BID [facility] Insulin Human Lispro (Humalog) 0 units SC .MILD SLIDING SCALE PRN PRN Reason: Mild Correctional Scale Last Admin: 08/30/18 12:36 Dose: 2 unit Insulin Human NPH (Humulin N) 12 unit SQ BID [facility] Losartan Potassium (Cozaar) 25 mg PO DAILY [facility] Ondansetron HCl (Zofran) 4 mg IVP Q6H PRN PRN Reason: Nausea/Vomiting Sodium Chloride (Flush - Normal Saline) 10 ml IVF PRN PRN PRN Reason: Saline Flush
--- NOTE | 2018-09-02 13:40 | PDOC.PN ---
- Subjective Encounter Start Date: 09/02/18 Encounter Start Time: 10:30 Subjective: pt up walking around - Objective Resuscitation Status - Order Detail: 08/28/18 10:41 Resuscitation Status Routine Resuscitation Status: DNAR: NO Resuscitation Discussed with: Patient Additional comments: Patient states the only machine he'd like to be on if needed is the dialysis machine, otherwise states that he does not want to have chest compressions or intubation Vital Signs & Weight: Vital Signs (12 hours) Temp Pulse Resp BP BP BP Pulse Ox 09/02/18 12:46 90 09/02/18 11:18 90 173/100 H 09/02/18 11:17 173/100 H 09/02/18 11:00 98.1 F 90 18 173/100 H 100 09/02/18 08:00 100 09/02/18 07:15 98.2 F 86 18 144/78 H 99 Weight Admit Weight 169 lb 8 oz Weight 169 lb 8 oz I&O: 09/01/18 09/02/18 09/03/18 06:59 06:59 06:59 Intake Total 450 1150 Balance 450 1150 Result Diagrams: 08/29/18 06:00 09/02/18 06:23 Additional Labs: Accuchecks 09/02/18 09/02/18 09/01/18 11:09 04:14 20:02 POC Glucose 190 H 118 H 217 H 09/01/18 16:48 POC Glucose 152 H Phys Exam - Physical Examination Neck: no nodes, no JVD, supple, full ROM Respiratory: no wheezing, no rales, no rhonchi, wheezing present, clear to auscultation bilateral Cardiovascular: RRR, no significant murmur, no rub, gallop, irregular Dx/Plan (1) Acute kidney injury superimposed on CKD Code(s): N17.9 - ACUTE KIDNEY FAILURE, UNSPECIFIED; N18.9 - CHRONIC KIDNEY DISEASE, UNSPECIFIED Status: Acute Comment: started on HD (2) Leg wound, left Code(s): S81.802A - UNSPECIFIED OPEN WOUND, LEFT LOWER LEG, INITIAL ENCOUNTER Status: Acute Comment: Empiric Doxycycline.doubt infected.Positive Cx likley a skin contaminant (3) Anemia in chronic kidney disease Code(s): N18.9 - CHRONIC KIDNEY DISEASE, UNSPECIFIED; D63.1 - ANEMIA IN CHRONIC KIDNEY DISEASE Status: Chronic (4) Uncontrolled diabetes mellitus Code(s): E11.65 - TYPE 2 DIABETES MELLITUS WITH HYPERGLYCEMIA Status: Chronic Qualifiers: Diabetes mellitus type: type 2 - Plan will start pt on his home meds -: waiting on dialysis * . Review of Systems - Review of Systems Cardiovascular: negative: chest pain, palpitations, orthopnea, paroxysmal nocturnal dyspnea, edema, light headedness, other Gastrointestinal: negative: Nausea, Vomiting, Abdominal Pain, Diarrhea, Constipation, Melena, Hematochezia, Other Genitourinary: negative: Dysuria, Frequency, Incontinence, Hematuria, Retention , Other - Medications/Allergies Allergies/Adverse Reactions: Allergies Allergy/AdvReac Type Severity Reaction Status Date / Time No Known Drug Allergies Allergy Verified 07/31/18 23:49 Medications: Current Medications Acetaminophen (Tylenol) 650 mg PO Q4H PRN PRN Reason: Headache/Fever/Mild Pain (1-3) Last Admin: 09/02/18 06:01 Dose: 650 mg Amlodipine Besylate (Norvasc) 10 mg PO DAILY [facility] Last Admin: 09/02/18 11:18 Dose: 10 mg Aspirin (Aspirin Chewable) 81 mg PO QAM-[facility] Last Admin: 09/02/18 08:55 Dose: 81 mg Carvedilol (Coreg) 12.5 mg PO BID-[facility] Last Admin: 09/02/18 11:17 Dose: 12.5 mg Cefazolin Sodium (Ancef) 2 gm SLOW IVP ONCALL-OR [facility] Clonidine (Catapres) 0.1 mg PO Q4H PRN PRN Reason: FOR SBP > 170mmHg Last Admin: 08/31/18 20:22 Dose: 0.1 mg Dextrose/Water (Dextrose 50%) 25 gm SLOW IVP PRN PRN PRN Reason: Hypoglycemia Doxycycline Hyclate (Vibramycin) 100 mg PO BID [facility] Last Admin: 09/02/18 08:55 Dose: 100 mg Epoetin Rodrigo (Procrit) 7,500 units SC MOWEFR [facility] Last Admin: 08/31/18 14:39 Dose: 7,500 units Gabapentin (Neurontin) 300 mg PO HS [facility] Glucagon (Glucagon) 1 mg IM PRN PRN PRN Reason: Hypoglycemia Heparin Sodium (Porcine) (Heparin) 5,000 units SC BID [facility] Last Admin: 09/02/18 11:18 Dose: Not Given Hydralazine HCl (Apresoline) 25 mg PO QID [facility] Last Admin: 09/02/18 12:46 Dose: Not Given Dextrose/Water (D5w) 1,000 mls @ 0 mls/hr IV .Q0M PRN PRN Reason: Hypoglycemia Insulin Human Isoph/Insulin Regular (Humulin 70/30) 10 units SC BID [facility] Insulin Human Lispro (Humalog) 0 units SC .MILD SLIDING SCALE PRN PRN Reason: Mild Correctional Scale Last Admin: 08/30/18 12:36 Dose: 2 unit Insulin Human NPH (Humulin N) 12 unit SQ BID [facility] Losartan Potassium (Cozaar) 25 mg PO DAILY [facility] Ondansetron HCl (Zofran) 4 mg IVP Q6H PRN PRN Reason: Nausea/Vomiting Sodium Chloride (Flush - Normal Saline) 10 ml IVF PRN PRN PRN Reason: Saline Flush
[2018-09-02] MEDS ORDERED: Heparin 10,000 UNITS/ 10 ML VIAL ONE (15:24)
--- NOTE | 2018-09-02 15:25 | PRG ---
DATE OF SERVICE: 09/02/2018 SUBJECTIVE: A 33-year-old gentleman, being seen for end-stage renal disease. The patient denies any nausea, vomiting, or chest pain. OBJECTIVE: CONSTITUTIONAL: On examination, the patient is awake and alert. VITAL SIGNS: Afebrile, pulse 94, breathing 16, and blood pressure 173/100. GENERAL APPEARANCE AND MENTAL STATUS: Fair. HEAD/NECK: Normocephalic. Atraumatic. EYES: EOMI. No deformity. EARS: Clear. No ulcers. NOSE: Intact. No lesions. MOUTH: Clear. No discharge. THROAT: Clear. No exudate. LUNGS: Clear. No crackles. CARDIAC: S1, S2. No rub. ABDOMEN: Benign. Bowel sounds positive. GENITALIA/RECTUM: Aguirre absent. BACK/EXTREMITIES: Edema 0+. NEUROLOGICAL: Alert and motor intact. LABORATORY DATA: Labs show hemoglobin 9.1. Potassium 4.0. ASSESSMENT: 1. Stage 6 chronic kidney disease, plan dialysis. 2. Hypertension. I would recommend increasing the carvedilol to 25 mg q.12. 3. Medications based on glomerular filtration rate are appropriate. Outpatient discharge planning is in process. Job ID: [id number]
[2018-09-02] MEDS: Epoetin (ESRD) 20,000 UNITS/ML SC SCH (19:06)
[2018-09-02] MEDS ORDERED: NPH, Human Insulin Isophane 300 UNIT/3 ML VIAL SQ SCH (21:00)
[2018-09-02] MEDS: Gabapentin 300 MG CAP PO SCH (21:07)
[2018-09-02] MEDS: HumuLIN 70/30 (300 UNITS/3 ML VIAL) SC SCH (21:28)
[2018-09-02] MEDS: HumaLOG 300 UNITS/3 ML VIAL SC PRN (21:29)
[2018-09-03 06:13] LABS: Anion Gap 9 mmol/L (10-20); BUN (Urea Nitrogen) 20 mg/dL (8.9-20.6); Calc. Creatinine Clearance 35 mL/min (70-130); Calcium 8.6 mg/dL (7.8-10.44); Carbon Dioxide 30 mmol/L (22-29); Chloride 104 mmol/L (98-107); Estimated GFR-MDRD 22; Glucose 107 mg/dL (70-105); Potassium 3.7 mmol/L (3.5-5.1); Sodium 139 mmol/L (136-145)
[2018-09-03] MEDS: Amlodipine 10 MG TAB PO SCH (08:15)
[2018-09-03] MEDS: hydrALAZINE 25 MG TAB PO SCH ×4 (08:15→21:12)
[2018-09-03] MEDS: Carvedilol 6.25 MG TAB PO SCH ×2 (08:15→18:18)
[2018-09-03] MEDS: Losartan 25 MG TAB PO SCH (08:16)
[2018-09-03] MEDS: Heparin 5,000 UNITS/ML VIAL SC SCH ×2 (08:16→21:15)
[2018-09-03] MEDS: Doxycycline 100 MG CAP PO SCH ×2 (08:16→21:12)
--- NOTE | 2018-09-03 10:52 | PRG ---
DATE OF SERVICE: 09/03/2018 SUBJECTIVE: A 33-year-old gentleman being seen for end-stage renal disease. The patient denies any nausea, vomiting, or chest pain. OBJECTIVE: CONSTITUTIONAL: On examination, the patient is awake, alert. VITAL SIGNS: Afebrile, pulse 62, breathing 16, and blood pressure 125/73. GENERAL APPEARANCE AND MENTAL STATUS: Fair. HEAD/NECK: Normocephalic. Atraumatic. EYES: EOMI. No deformity. EARS: Clear. No ulcers. NOSE: Intact. No lesions. MOUTH: Clear. No discharge. THROAT: Clear. No exudate. LUNGS: Clear. No crackles. CARDIAC: S1, S2. No rub. ABDOMEN: Benign. Bowel sounds positive. GENITALIA/RECTUM: Aguirre absent. BACK/EXTREMITIES: Edema 0+. NEUROLOGICAL: Alert and motor intact. LABORATORY DATA: Labs show hemoglobin is pending. Creatinine 3.2. ASSESSMENT AND PLAN: 1. End-stage renal disease, plan dialysis. 2. Hypertension, stable. 3. Anemia, stable. 4. Medications based on glomerular filtration rate are appropriate. Job ID: [id number]
--- NOTE | 2018-09-03 12:56 | PDOC.PN ---
- Subjective Encounter Start Date: 09/03/18 Encounter Start Time: 10:05 Subjective: pt up in bed no complains - Objective Resuscitation Status - Order Detail: 08/28/18 10:41 Resuscitation Status Routine Resuscitation Status: DNAR: NO Resuscitation Discussed with: Patient Additional comments: Patient states the only machine he'd like to be on if needed is the dialysis machine, otherwise states that he does not want to have chest compressions or intubation Vital Signs & Weight: Vital Signs (12 hours) Temp Pulse Resp BP BP Pulse Ox 09/03/18 08:15 88 125/70 09/03/18 07:50 98.4 F 88 17 125/70 97 Weight Admit Weight 169 lb 8 oz Weight 169 lb 8 oz I&O: 09/02/18 09/03/18 09/04/18 06:59 06:59 06:59 Intake Total 1150 900 Balance 1150 900 Result Diagrams: 08/29/18 06:00 09/03/18 05:40 Additional Labs: Accuchecks 09/03/18 09/02/18 09/02/18 04:56 19:59 17:35 POC Glucose 109 280 H 121 H Phys Exam - Physical Examination Neck: no nodes, no JVD, supple, full ROM Respiratory: no wheezing, no rales, no rhonchi, wheezing present, clear to auscultation bilateral Cardiovascular: RRR, no significant murmur, no rub, gallop, irregular Dx/Plan (1) Acute kidney injury superimposed on CKD Code(s): N17.9 - ACUTE KIDNEY FAILURE, UNSPECIFIED; N18.9 - CHRONIC KIDNEY DISEASE, UNSPECIFIED Status: Acute Comment: started on HD (2) Leg wound, left Code(s): S81.802A - UNSPECIFIED OPEN WOUND, LEFT LOWER LEG, INITIAL ENCOUNTER Status: Acute Comment: Empiric Doxycycline.doubt infected.Positive Cx likley a skin contaminant (3) Anemia in chronic kidney disease Code(s): N18.9 - CHRONIC KIDNEY DISEASE, UNSPECIFIED; D63.1 - ANEMIA IN CHRONIC KIDNEY DISEASE Status: Chronic (4) Uncontrolled diabetes mellitus Code(s): E11.65 - TYPE 2 DIABETES MELLITUS WITH HYPERGLYCEMIA Status: Chronic Qualifiers: Diabetes mellitus type: type 2 - Plan will continue current meds -: awaiting dialysis set up. * . Review of Systems - Review of Systems Cardiovascular: negative: chest pain, palpitations, orthopnea, paroxysmal nocturnal dyspnea, edema, light headedness, other Gastrointestinal: negative: Nausea, Vomiting, Abdominal Pain, Diarrhea, Constipation, Melena, Hematochezia, Other Genitourinary: negative: Dysuria, Frequency, Incontinence, Hematuria, Retention , Other - Medications/Allergies Allergies/Adverse Reactions: Allergies Allergy/AdvReac Type Severity Reaction Status Date / Time No Known Drug Allergies Allergy Verified 07/31/18 23:49 Medications: Current Medications Acetaminophen (Tylenol) 650 mg PO Q4H PRN PRN Reason: Headache/Fever/Mild Pain (1-3) Last Admin: 09/02/18 06:01 Dose: 650 mg Amlodipine Besylate (Norvasc) 10 mg PO DAILY [facility] Last Admin: 09/03/18 08:15 Dose: 10 mg Aspirin (Aspirin Chewable) 81 mg PO QAM-[facility] Last Admin: 09/03/18 08:15 Dose: 81 mg Carvedilol (Coreg) 12.5 mg PO BID-[facility] Last Admin: 09/03/18 08:15 Dose: 12.5 mg Cefazolin Sodium (Ancef) 2 gm SLOW IVP ONCALL-OR [facility] Clonidine (Catapres) 0.1 mg PO Q4H PRN PRN Reason: FOR SBP > 170mmHg Last Admin: 08/31/18 20:22 Dose: 0.1 mg Dextrose/Water (Dextrose 50%) 25 gm SLOW IVP PRN PRN PRN Reason: Hypoglycemia Doxycycline Hyclate (Vibramycin) 100 mg PO BID [facility] Last Admin: 09/03/18 08:16 Dose: 100 mg Epoetin Rodrigo (Procrit) 7,500 units SC MOWEFR [facility] Last Admin: 09/02/18 19:06 Dose: 7,500 units Gabapentin (Neurontin) 300 mg PO HS [facility] Last Admin: 09/02/18 21:07 Dose: 300 mg Glucagon (Glucagon) 1 mg IM PRN PRN PRN Reason: Hypoglycemia Heparin Sodium (Porcine) (Heparin) 5,000 units SC BID [facility] Last Admin: 09/03/18 08:16 Dose: 5,000 units Hydralazine HCl (Apresoline) 25 mg PO QID [facility] Last Admin: 09/03/18 08:15 Dose: 25 mg Dextrose/Water (D5w) 1,000 mls @ 0 mls/hr IV .Q0M PRN PRN Reason: Hypoglycemia Insulin Human Isoph/Insulin Regular (Humulin 70/30) 10 units SC BID [facility] Last Admin: 09/02/18 21:28 Dose: Not Given Insulin Human Lispro (Humalog) 0 units SC .MILD SLIDING SCALE PRN PRN Reason: Mild Correctional Scale Last Admin: 09/02/18 21:29 Dose: 4 unit Losartan Potassium (Cozaar) 25 mg PO DAILY [facility] Last Admin: 09/03/18 08:16 Dose: 25 mg Ondansetron HCl (Zofran) 4 mg IVP Q6H PRN PRN Reason: Nausea/Vomiting Sodium Chloride (Flush - Normal Saline) 10 ml IVF PRN PRN PRN Reason: Saline Flush
[2018-09-03] MEDS: HumuLIN 70/30 (300 UNITS/3 ML VIAL) SC SCH ×2 (13:21→21:15)
--- NOTE | 2018-09-03 17:16 | EKG ---
Test Reason : Blood Pressure : / mmHG Vent. Rate : 099 BPM Atrial Rate : 099 BPM P-R Int : 116 ms QRS Dur : 074 ms QT Int : 352 ms P-R-T Axes : 042 045 054 degrees QTc Int : 451 ms Normal sinus rhythm Normal ECG Confirmed by FELIBERTO MARQUEZ ([id number]), news editor SHANELL DIETZ ([id number] on 09/03/2018 5:16:03 PM Referred By: Confirmed By:FELIBERTO MARQUEZ
[2018-09-03] MEDS: Gabapentin 300 MG CAP PO SCH (21:12)
[2018-09-04 05:09] LABS: Hemoglobin 8.6 g/dL (14.0-18.0)
[2018-09-04 05:26] LABS: Anion Gap 12 mmol/L (10-20); BUN (Urea Nitrogen) 31 mg/dL (8.9-20.6); Calc. Creatinine Clearance 26 mL/min (70-130); Calcium 8.7 mg/dL (7.8-10.44); Carbon Dioxide 26 mmol/L (22-29); Chloride 104 mmol/L (98-107); Estimated GFR-MDRD 16; Glucose 117 mg/dL (70-105); Potassium 3.9 mmol/L (3.5-5.1); Sodium 138 mmol/L (136-145)
[2018-09-04] MEDS: Doxycycline 100 MG CAP PO SCH ×2 (08:51→20:59)
[2018-09-04] MEDS: Carvedilol 6.25 MG TAB PO SCH ×2 (08:51→16:55)
[2018-09-04] MEDS: Amlodipine 10 MG TAB PO SCH (08:52)
[2018-09-04] MEDS: Heparin 5,000 UNITS/ML VIAL SC SCH ×2 (08:52→20:59)
[2018-09-04] MEDS: hydrALAZINE 25 MG TAB PO SCH ×4 (08:52→21:01)
[2018-09-04] MEDS: Losartan 25 MG TAB PO SCH (08:52)
[2018-09-04] MEDS: HumuLIN 70/30 (300 UNITS/3 ML VIAL) SC SCH ×2 (08:53→21:01)
--- NOTE | 2018-09-04 14:10 | PRG ---
DATE OF SERVICE: 09/04/2018 SUBJECTIVE: A 33-year-old gentleman, being seen for end-stage renal disease. The patient denied any nausea, vomiting, or chest pain. OBJECTIVE: CONSTITUTIONAL: On examination, the patient is awake, alert. VITAL SIGNS: Afebrile, pulse 90, breathing 16, and blood pressure 147/81. GENERAL APPEARANCE AND MENTAL STATUS: Fair. HEAD/NECK: Normocephalic. Atraumatic. EYES: EOMI. No deformity. EARS: Clear. No ulcers. NOSE: Intact. No lesions. MOUTH: Clear. No discharge. THROAT: Clear. No exudate. LUNGS: Clear. No crackles. CARDIAC: S1, S2. No rub. ABDOMEN: Benign. Bowel sounds positive. GENITALIA/RECTUM: Aguirre absent. BACK/EXTREMITIES: Edema 0+. NEUROLOGICAL: Alert and motor intact. LABORATORY DATA: Labs show hemoglobin 8.6. ASSESSMENT AND PLAN: 1. Stage 6 chronic kidney disease. Plan dialysis. 2. Hypertension, stable. 3. Anemia, stable. 4. Medications based on glomerular filtration rate are appropriate. Job ID: [id number]
--- NOTE | 2018-09-04 14:25 | PDOC.PN ---
- Subjective Encounter Start Date: 09/04/18 Encounter Start Time: 11:00 Subjective: pt up in bed no complains - Objective Resuscitation Status - Order Detail: 08/28/18 10:41 Resuscitation Status Routine Resuscitation Status: DNAR: NO Resuscitation Discussed with: Patient Additional comments: Patient states the only machine he'd like to be on if needed is the dialysis machine, otherwise states that he does not want to have chest compressions or intubation Vital Signs & Weight: Vital Signs (12 hours) Temp Pulse Resp BP BP Pulse Ox 09/04/18 08:52 90 09/04/18 08:51 147/81 H 09/04/18 08:00 100 09/04/18 07:45 98.4 F 90 19 147/81 H 100 Weight Admit Weight 169 lb 8 oz Weight 169 lb 8 oz I&O: 09/03/18 09/04/18 09/05/18 06:59 06:59 06:59 Intake Total 900 1600 480 Balance 900 1600 480 Result Diagrams: 09/04/18 04:58 09/04/18 04:58 Additional Labs: Accuchecks 09/04/18 09/04/18 09/03/18 11:34 04:35 20:18 POC Glucose 76 133 H 179 H 09/03/18 09/03/18 17:04 11:50 POC Glucose 93 237 H Phys Exam - Physical Examination Neck: no nodes, no JVD, supple, full ROM Respiratory: no wheezing, no rales, no rhonchi, wheezing present, clear to auscultation bilateral Cardiovascular: RRR, no significant murmur, no rub, gallop, irregular Dx/Plan (1) Acute kidney injury superimposed on CKD Code(s): N17.9 - ACUTE KIDNEY FAILURE, UNSPECIFIED; N18.9 - CHRONIC KIDNEY DISEASE, UNSPECIFIED Status: Acute Comment: started on HD (2) Leg wound, left Code(s): S81.802A - UNSPECIFIED OPEN WOUND, LEFT LOWER LEG, INITIAL ENCOUNTER Status: Acute Comment: Empiric Doxycycline.doubt infected.Positive Cx likley a skin contaminant (3) Anemia in chronic kidney disease Code(s): N18.9 - CHRONIC KIDNEY DISEASE, UNSPECIFIED; D63.1 - ANEMIA IN CHRONIC KIDNEY DISEASE Status: Chronic (4) Uncontrolled diabetes mellitus Code(s): E11.65 - TYPE 2 DIABETES MELLITUS WITH HYPERGLYCEMIA Status: Chronic Qualifiers: Diabetes mellitus type: type 2 - Plan pt up in bed no complains -: still awaiting dialysis set up * . Review of Systems - Review of Systems ENT: negative: Ear Pain, Ear Discharge, Nose Pain, Nose Discharge, Nose Congestion, Mouth Pain, Mouth Swelling, Throat Pain, Throat Swelling, Other Respiratory: negative: Cough, Dry, Shortness of Breath, Hemoptysis, SOB with Excertion, Pleuritic Pain, Sputum, Wheezing Cardiovascular: negative: chest pain, palpitations, orthopnea, paroxysmal nocturnal dyspnea, edema, light headedness, other Gastrointestinal: negative: Nausea, Vomiting, Abdominal Pain, Diarrhea, Constipation, Melena, Hematochezia, Other - Medications/Allergies Allergies/Adverse Reactions: Allergies Allergy/AdvReac Type Severity Reaction Status Date / Time No Known Drug Allergies Allergy Verified 07/31/18 23:49 Medications: Current Medications Acetaminophen (Tylenol) 650 mg PO Q4H PRN PRN Reason: Headache/Fever/Mild Pain (1-3) Last Admin: 09/02/18 06:01 Dose: 650 mg Amlodipine Besylate (Norvasc) 10 mg PO DAILY [facility]S [facility] Last Admin: 09/04/18 08:52 Dose: 10 mg Aspirin (Aspirin Chewable) 81 mg PO QAM-[facility] Last Admin: 09/04/18 08:51 Dose: 81 mg Carvedilol (Coreg) 12.5 mg PO BID-[facility] Last Admin: 09/04/18 08:51 Dose: 12.5 mg Cefazolin Sodium (Ancef) 2 gm SLOW IVP ONCALL-OR [facility]S INCLUDE 234 BEDS AT [facility] Clonidine (Catapres) 0.1 mg PO Q4H PRN PRN Reason: FOR SBP > 170mmHg Last Admin: 08/31/18 20:22 Dose: 0.1 mg Dextrose/Water (Dextrose 50%) 25 gm SLOW IVP PRN PRN PRN Reason: Hypoglycemia Doxycycline Hyclate (Vibramycin) 100 mg PO BID [facility] 234 [facility]S [facility] Last Admin: 09/04/18 08:51 Dose: 100 mg Epoetin Rodrigo (Procrit) 7,500 units SC MOWEFR [facility] 234 BEDS [facility] Last Admin: 09/02/18 19:06 Dose: 7,500 units Gabapentin (Neurontin) 300 mg PO HS [facility] 234 B[facility]S [facility] Last Admin: 09/03/18 21:12 Dose: 300 mg Glucagon (Glucagon) 1 mg IM PRN PRN PRN Reason: Hypoglycemia Heparin Sodium (Porcine) (Heparin) 5,000 units SC BID [facility] 234 B[facility]S [facility] Last Admin: 09/04/18 08:52 Dose: 5,000 units Hydralazine HCl (Apresoline) 25 mg PO QID [facility] 234 B[facility]S [facility] Last Admin: 09/04/18 08:52 Dose: 25 mg Dextrose/Water (D5w) 1,000 mls @ 0 mls/hr IV .Q0M PRN PRN Reason: Hypoglycemia Insulin Human Isoph/Insulin Regular (Humulin 70/30) 10 units SC BID [facility] 234 BEDS AT [facility] Last Admin: 09/04/18 08:53 Dose: 10 unit Insulin Human Lispro (Humalog) 0 units SC .MILD SLIDING SCALE PRN PRN Reason: Mild Correctional Scale Last Admin: 09/02/18 21:29 Dose: 4 unit Losartan Potassium (Cozaar) 25 mg PO DAILY [facility] 234 [facility]S [facility] Last Admin: 09/04/18 08:52 Dose: 25 mg Ondansetron HCl (Zofran) 4 mg IVP Q6H PRN PRN Reason: Nausea/Vomiting Sodium Chloride (Flush - Normal Saline) 10 ml IVF PRN PRN PRN Reason: Saline Flush
[2018-09-04] MEDS: Gabapentin 300 MG CAP PO SCH (20:59)
[2018-09-04] MEDS: Acetaminophen 325 MG TAB PO PRN (21:51)
[2018-09-05 06:18] LABS: Anion Gap 13 mmol/L (10-20); BUN (Urea Nitrogen) 45 mg/dL (8.9-20.6); Calc. Creatinine Clearance 23 mL/min (70-130); Calcium 9.1 mg/dL (7.8-10.44); Carbon Dioxide 25 mmol/L (22-29); Chloride 102 mmol/L (98-107); Estimated GFR-MDRD 14; Glucose 126 mg/dL (70-105); Potassium 4.5 mmol/L (3.5-5.1); Sodium 135 mmol/L (136-145)
[2018-09-05] MEDS: Amlodipine 10 MG TAB PO SCH (08:18)
[2018-09-05] MEDS: hydrALAZINE 25 MG TAB PO SCH ×4 (08:18→21:13)
[2018-09-05] MEDS: Carvedilol 6.25 MG TAB PO SCH ×2 (08:18→17:25)
[2018-09-05] MEDS: Heparin 5,000 UNITS/ML VIAL SC SCH ×2 (08:18→21:13)
[2018-09-05] MEDS: Doxycycline 100 MG CAP PO SCH ×2 (08:18→21:12)
[2018-09-05] MEDS: Losartan 25 MG TAB PO SCH (08:18)
[2018-09-05] MEDS: HumuLIN 70/30 (300 UNITS/3 ML VIAL) SC SCH ×2 (08:18→21:14)
--- NOTE | 2018-09-05 11:11 | PRG ---
DATE OF SERVICE: 09/05/2018 SUBJECTIVE: A 33-year-old gentleman, being seen for end-stage renal disease. The patient denies any nausea, vomiting, or chest pain. OBJECTIVE: CONSTITUTIONAL: On examination, the patient is awake, alert. VITAL SIGNS: Afebrile, pulse 80, breathing 16, and blood pressure 160/70. GENERAL APPEARANCE AND MENTAL STATUS: Fair. HEAD/NECK: Normocephalic. Atraumatic. EYES: EOMI. No deformity. EARS: Clear. No ulcers. NOSE: Intact. No lesions. MOUTH: Clear. No discharge. THROAT: Clear. No exudate. LUNGS: Clear. No crackles. CARDIAC: S1, S2. No rub. ABDOMEN: Benign. Bowel sounds positive. GENITALIA/RECTUM: Aguirre absent. BACK/EXTREMITIES: Edema 0+. NEUROLOGICAL: Alert and motor intact. SKIN: LYMPHATICS: LABORATORY DATA: Labs show hemoglobin 8.6. ASSESSMENT AND RECOMMENDATION: 1. Stage 6 chronic kidney disease, continue hemodialysis. 2. Hypertension, stable. 3. Anemia, stable. 4. Medications based on glomerular filtration rate are appropriate. Job ID: [id number]
[2018-09-05] MEDS: Epoetin (ESRD) 20,000 UNITS/ML SC SCH (15:22)
--- NOTE | 2018-09-05 21:05 | PDOC.PN ---
- Subjective Encounter Start Date: 09/05/18 Encounter Start Time: 10:00 Subjective: pt up in bed complains of tingling to his right hand - Objective Resuscitation Status - Order Detail: 08/28/18 10:41 Resuscitation Status Routine Resuscitation Status: DNAR: NO Resuscitation Discussed with: Patient Additional comments: Patient states the only machine he'd like to be on if needed is the dialysis machine, otherwise states that he does not want to have chest compressions or intubation Vital Signs & Weight: Vital Signs (12 hours) Temp Pulse Resp BP BP Pulse Ox 09/05/18 19:58 98.3 F 96 16 139/82 100 09/05/18 17:25 80 167/92 H 09/05/18 14:16 80 116/70 Weight Admit Weight 169 lb 8 oz Weight 169 lb 8 oz I&O: 09/04/18 09/05/18 09/06/18 06:59 06:59 06:59 Intake Total 1600 3100 840 Balance 1600 3100 840 Result Diagrams: 09/04/18 04:58 09/05/18 05:45 Additional Labs: Accuchecks 09/05/18 09/05/18 09/05/18 16:42 12:08 05:49 POC Glucose 158 H 140 H 148 H Phys Exam - Physical Examination Neck: no nodes, no JVD, supple, full ROM Respiratory: no wheezing, no rales, no rhonchi, wheezing present, clear to auscultation bilateral Cardiovascular: RRR, no significant murmur, no rub, gallop, irregular Gastrointestinal: soft, non-tender, no distention, positive bowel sounds Dx/Plan (1) Acute kidney injury superimposed on CKD Code(s): N17.9 - ACUTE KIDNEY FAILURE, UNSPECIFIED; N18.9 - CHRONIC KIDNEY DISEASE, UNSPECIFIED Status: Acute Comment: started on HD (2) Leg wound, left Code(s): S81.802A - UNSPECIFIED OPEN WOUND, LEFT LOWER LEG, INITIAL ENCOUNTER Status: Acute Comment: Empiric Doxycycline.doubt infected.Positive Cx likley a skin contaminant (3) Anemia in chronic kidney disease Code(s): N18.9 - CHRONIC KIDNEY DISEASE, UNSPECIFIED; D63.1 - ANEMIA IN CHRONIC KIDNEY DISEASE Status: Chronic (4) Uncontrolled diabetes mellitus Code(s): E11.65 - TYPE 2 DIABETES MELLITUS WITH HYPERGLYCEMIA Status: Chronic Qualifiers: Diabetes mellitus type: type 2 - Plan will discontinue doxy -: awaiting dialysis set up by case managment -: pt is clinically stable to be discharged * . Review of Systems - Review of Systems Respiratory: negative: Cough, Dry, Shortness of Breath, Hemoptysis, SOB with Excertion, Pleuritic Pain, Sputum, Wheezing Cardiovascular: negative: chest pain, palpitations, orthopnea, paroxysmal nocturnal dyspnea, edema, light headedness, other Gastrointestinal: negative: Nausea, Vomiting, Abdominal Pain, Diarrhea, Constipation, Melena, Hematochezia, Other Genitourinary: negative: Dysuria, Frequency, Incontinence, Hematuria, Retention , Other Neurological: Other - Medications/Allergies Allergies/Adverse Reactions: Allergies Allergy/AdvReac Type Severity Reaction Status Date / Time No Known Drug Allergies Allergy Verified 07/31/18 23:49 Medications: Current Medications Acetaminophen (Tylenol) 650 mg PO Q4H PRN PRN Reason: Headache/Fever/Mild Pain (1-3) Last Admin: 09/04/18 21:51 Dose: 650 mg Amlodipine Besylate (Norvasc) 10 mg PO DAILY [facility] Last Admin: 09/05/18 08:18 Dose: Not Given Aspirin (Aspirin Chewable) 81 mg PO QAM-[facility] Last Admin: 09/05/18 08:17 Dose: Not Given Carvedilol (Coreg) 12.5 mg PO BID-[facility] Last Admin: 09/05/18 17:25 Dose: 12.5 mg Cefazolin Sodium (Ancef) 2 gm SLOW IVP ONCALL-OR [facility] Clonidine (Catapres) 0.1 mg PO Q4H PRN PRN Reason: FOR SBP > 170mmHg Last Admin: 08/31/18 20:22 Dose: 0.1 mg Dextrose/Water (Dextrose 50%) 25 gm SLOW IVP PRN PRN PRN Reason: Hypoglycemia Doxycycline Hyclate (Vibramycin) 100 mg PO BID [facility] Last Admin: 09/05/18 08:18 Dose: Not Given Epoetin Rodrigo (Procrit) 7,500 units SC MOWEFR [facility] Last Admin: 09/05/18 15:22 Dose: 7,500 units Gabapentin (Neurontin) 300 mg PO HS [facility] Last Admin: 09/04/18 20:59 Dose: 300 mg Glucagon (Glucagon) 1 mg IM PRN PRN PRN Reason: Hypoglycemia Heparin Sodium (Porcine) (Heparin) 5,000 units SC BID [facility] Last Admin: 09/05/18 08:18 Dose: Not Given Hydralazine HCl (Apresoline) 25 mg PO QID [facility] Last Admin: 09/05/18 17:25 Dose: 25 mg Dextrose/Water (D5w) 1,000 mls @ 0 mls/hr IV .Q0M PRN PRN Reason: Hypoglycemia Insulin Human Isoph/Insulin Regular (Humulin 70/30) 10 units SC BID [facility] Last Admin: 09/05/18 08:18 Dose: Not Given Insulin Human Lispro (Humalog) 0 units SC .MILD SLIDING SCALE PRN PRN Reason: Mild Correctional Scale Last Admin: 09/02/18 21:29 Dose: 4 unit Losartan Potassium (Cozaar) 25 mg PO DAILY [facility] Last Admin: 09/05/18 08:18 Dose: Not Given Ondansetron HCl (Zofran) 4 mg IVP Q6H PRN PRN Reason: Nausea/Vomiting Sodium Chloride (Flush - Normal Saline) 10 ml IVF PRN PRN PRN Reason: Saline Flush
[2018-09-05] MEDS: Gabapentin 300 MG CAP PO SCH (21:13)
--- NOTE | 2018-09-05 23:15 | PRG ---
DATE OF SERVICE: 09/05/2018 SUBJECTIVE: Mr. Butler has developed end-stage renal disease. Earlier in this hospitalization, Dr. Perez has performed a couple of operations for dialysis access. He placed a dialysis catheter to his right internal jugular vein on August 28. He placed a Jose fistula in his right wrist on September 01. The patient has been dialyzing using his catheter. I was asked to come by and see him today because of complaints by the patient that he was having some numbness and tingling in his right hand. He tells me that this is intermittent. He denies pain, but feel like he loses sensation in the hand occasionally. OBJECTIVE: VITAL SIGNS: On examination, he is afebrile. Pulse is 96, blood pressure is 139/82. EXTREMITIES: Examination is limited to his right hand. Incision on his right wrist is healing nicely. He has easily palpable thrill proximally on the wrist. His fingers are somewhat cold, but he tells me he has just been eating ice and holding ice in his fingers. His palm has warmed up on palpation as are the base of his fingers. It is difficult to check capillary refill, because he has just been handling ice. ASSESSMENT: He does have some changes in sensation in his hand, but these are not indicative of severe problem associated with steal. I expect that these will improve and eventually resolve. I have encouraged him to perform exercises with his hands during the day to increase the blood flow. Dr. Perez will be able to re-evaluate him when he returns in a couple of days. Job ID: [id number]
[2018-09-06] MEDS: HumaLOG 300 UNITS/3 ML VIAL SC PRN (06:14)
[2018-09-06 07:00] LABS: Anion Gap 14 mmol/L (10-20); BUN (Urea Nitrogen) 32 mg/dL (8.9-20.6); Calc. Creatinine Clearance 28 mL/min (70-130); Calcium 8.9 mg/dL (7.8-10.44); Carbon Dioxide 28 mmol/L (22-29); Chloride 97 mmol/L (98-107); Estimated GFR-MDRD 17; Glucose 208 mg/dL (70-105); Potassium 4.6 mmol/L (3.5-5.1); Sodium 134 mmol/L (136-145)
[2018-09-06] MEDS: Heparin 5,000 UNITS/ML VIAL SC SCH ×2 (09:12→20:53)
[2018-09-06] MEDS: Amlodipine 10 MG TAB PO SCH (09:12)
[2018-09-06] MEDS: Carvedilol 6.25 MG TAB PO SCH ×2 (09:12→17:13)
[2018-09-06] MEDS: hydrALAZINE 25 MG TAB PO SCH ×4 (09:13→20:49)
[2018-09-06] MEDS: Losartan 25 MG TAB PO SCH (09:13)
[2018-09-06] MEDS: HumuLIN 70/30 (300 UNITS/3 ML VIAL) SC SCH ×2 (09:13→20:50)
--- NOTE | 2018-09-06 11:08 | PDOC.PN ---
- Subjective Encounter Start Date: 09/06/18 Encounter Start Time: 11:07 Patient seen and examined, no new issues or complaints in the last 24 hours, all questions answered. - Objective Resuscitation Status - Order Detail: 08/28/18 10:41 Resuscitation Status Routine Resuscitation Status: DNAR: NO Resuscitation Discussed with: Patient Additional comments: Patient states the only machine he'd like to be on if needed is the dialysis machine, otherwise states that he does not want to have chest compressions or intubation Vital Signs & Weight: Vital Signs (12 hours) Temp Pulse Resp BP BP Pulse Ox 09/06/18 09:13 100 163/88 H 09/06/18 09:12 100 163/88 H 09/06/18 08:00 100 09/06/18 07:56 98.3 F 100 18 163/88 H 100 Weight Admit Weight 169 lb 8 oz Weight 169 lb 8 oz I&O: 09/05/18 09/06/18 09/07/18 06:59 06:59 06:59 Intake Total 3100 840 Balance 3100 840 Result Diagrams: 09/04/18 04:58 09/06/18 06:27 Additional Labs: Accuchecks 09/06/18 09/05/18 09/05/18 05:22 20:04 16:42 POC Glucose 212 H 134 H 158 H 09/05/18 12:08 POC Glucose 140 H Phys Exam - Physical Examination Constitutional: NAD HEENT: PERRLA, moist MMs, sclera anicteric Neck: no nodes, no JVD, supple Respiratory: no wheezing, no rales, no rhonchi Cardiovascular: RRR, no significant murmur, no rub Gastrointestinal: soft, non-tender, no distention Musculoskeletal: pulses present, edema present (trace) Dx/Plan (1) ESRD (end stage renal disease) Code(s): N18.6 - END STAGE RENAL DISEASE Status: Acute (2) Uncontrolled diabetes mellitus Code(s): E11.65 - TYPE 2 DIABETES MELLITUS WITH HYPERGLYCEMIA Status: Chronic Qualifiers: Diabetes mellitus type: type 2 (3) Hypertension Code(s): I10 - ESSENTIAL (PRIMARY) HYPERTENSION Status: Chronic - Plan * cont current plan * pending out patinet HD arrangements * can DC once out patient HD arranged * case and plan d/w patient at length, he understood and agree with this plan .
--- NOTE | 2018-09-06 12:48 | PRG ---
DATE OF SERVICE: 09/06/2018 SUBJECTIVE: A 33-year-old gentleman, being seen for end-stage renal disease. The patient denies any nausea, vomiting, or chest pain. OBJECTIVE: CONSTITUTIONAL: On examination, the patient is awake and alert. VITAL SIGNS: Afebrile, pulse 100, breathing 16, blood pressure 163/88. GENERAL APPEARANCE AND MENTAL STATUS: Fair. HEAD/NECK: Normocephalic. Atraumatic. EYES: EOMI. No deformity. EARS: Clear. No ulcers. NOSE: Intact. No lesions. MOUTH: Clear. No discharge. THROAT: Clear. No exudate. LUNGS: Clear. No crackles. CARDIAC: S1, S2. No rub. ABDOMEN: Benign. Bowel sounds positive. GENITALIA/RECTUM: Aguirre absent. BACK/EXTREMITIES: Edema 0+. NEUROLOGICAL: Alert and motor intact. SKIN: LYMPHATICS: LABORATORY DATA: Hemoglobin 8.6, creatinine 3.95. ASSESSMENT AND PLAN: 1. Stage 6 chronic kidney disease, continue hemodialysis. 2. Hypertension, stable. 3. Anemia, stable. 4. Medications based on glomerular filtration rate are appropriate. Job ID: [id number]
[2018-09-06] MEDS: Gabapentin 300 MG CAP PO SCH (20:49)
[2018-09-07 04:40] LABS: Anion Gap 12 mmol/L (10-20); BUN (Urea Nitrogen) 43 mg/dL (8.9-20.6); Calc. Creatinine Clearance 23 mL/min (70-130); Carbon Dioxide 28 mmol/L (22-29); Chloride 103 mmol/L (98-107); Estimated GFR-MDRD 14; Glucose 145 mg/dL (70-105); Potassium 4.4 mmol/L (3.5-5.1); Sodium 139 mmol/L (136-145)
[2018-09-07] MEDS: hydrALAZINE 25 MG TAB PO SCH ×4 (08:20→21:24)
[2018-09-07] MEDS: Carvedilol 6.25 MG TAB PO SCH ×2 (08:20→16:51)
[2018-09-07] MEDS: Amlodipine 10 MG TAB PO SCH (08:20)
[2018-09-07] MEDS: Heparin 5,000 UNITS/ML VIAL SC SCH ×2 (08:20→21:25)
[2018-09-07] MEDS: HumuLIN 70/30 (300 UNITS/3 ML VIAL) SC SCH ×2 (08:21→21:25)
[2018-09-07] MEDS: Losartan 25 MG TAB PO SCH (08:21)
--- NOTE | 2018-09-07 11:40 | PRG ---
DATE OF SERVICE: 09/07/2018 SUBJECTIVE: A 33-year-old gentleman, being seen for end-stage renal disease. The patient denies any nausea, vomiting, or chest pain. OBJECTIVE: CONSTITUTIONAL: On examination, the patient is awake and alert. VITAL SIGNS: Afebrile. Pulse 90, breathing 16, blood pressure 129/82. GENERAL APPEARANCE AND MENTAL STATUS: Fair. HEAD/NECK: Normocephalic. Atraumatic. EYES: EOMI. No deformity. EARS: Clear. No ulcers. NOSE: Intact. No lesions. MOUTH: Clear. No discharge. THROAT: Clear. No exudate. LUNGS: Clear. No crackles. CARDIAC: S1, S2. No rub. ABDOMEN: Benign. Bowel sounds positive. GENITALIA/RECTUM: Aguirre absent. BACK/EXTREMITIES: Edema 0+. NEUROLOGICAL: Alert and motor intact. SKIN: LYMPHATICS: LABORATORY DATA: Labs show hemoglobin of 8.6. Creatinine ASSESSMENT AND PLAN: 1. Stage 6 chronic kidney disease. Plan dialysis. 2. Hypertension, stable. 3. Anemia, stable. 4. Medications based on glomerular filtration rate are appropriate. Job ID: [id number]
[2018-09-07] MEDS: Epoetin (ESRD) 20,000 UNITS/ML SC SCH (12:49)
[2018-09-07] MEDS: HumaLOG 300 UNITS/3 ML VIAL SC PRN (12:49)
--- NOTE | 2018-09-07 13:23 | PDOC.PN ---
- Subjective Encounter Start Date: 09/07/18 Encounter Start Time: 13:22 Patient seen and examined, no new issues or complaints. - Objective Resuscitation Status - Order Detail: 08/28/18 10:41 Resuscitation Status Routine Resuscitation Status: DNAR: NO Resuscitation Discussed with: Patient Additional comments: Patient states the only machine he'd like to be on if needed is the dialysis machine, otherwise states that he does not want to have chest compressions or intubation Vital Signs & Weight: Vital Signs (12 hours) BP 09/07/18 12:50 129/82 Weight Admit Weight 169 lb 8 oz Weight 169 lb 8 oz I&O: 09/06/18 09/07/18 09/08/18 06:59 06:59 06:59 Intake Total 840 2510 Balance 840 2510 Result Diagrams: 09/04/18 04:58 09/07/18 04:16 Additional Labs: Accuchecks 09/07/18 09/07/18 09/06/18 12:34 04:38 20:11 POC Glucose 260 H 174 H 218 H 09/06/18 09/06/18 16:49 13:20 POC Glucose 128 H 123 H Phys Exam - Physical Examination Constitutional: NAD HEENT: PERRLA, moist MMs, sclera anicteric Neck: no nodes, no JVD, supple Respiratory: no wheezing, no rales, no rhonchi Cardiovascular: RRR, no significant murmur, no rub Gastrointestinal: soft, non-tender, no distention, positive bowel sounds Musculoskeletal: pulses present, edema present (trace) Dx/Plan (1) ESRD (end stage renal disease) Code(s): N18.6 - END STAGE RENAL DISEASE Status: Acute (2) Uncontrolled diabetes mellitus Code(s): E11.65 - TYPE 2 DIABETES MELLITUS WITH HYPERGLYCEMIA Status: Chronic Qualifiers: Diabetes mellitus type: type 2 (3) Hypertension Code(s): I10 - ESSENTIAL (PRIMARY) HYPERTENSION Status: Chronic - Plan * cont current plan of care * out patient HD pending * DC once out patient HD arranged
[2018-09-07] MEDS ORDERED: Heparin 10,000 UNITS/ 10 ML VIAL ONE (15:00)
[2018-09-07] MEDS: Gabapentin 300 MG CAP PO SCH (21:24)
[2018-09-08 06:26] LABS: Anion Gap 10 mmol/L (10-20); BUN (Urea Nitrogen) 31 mg/dL (8.9-20.6); Calc. Creatinine Clearance 29 mL/min (70-130); Calcium 8.8 mg/dL (7.8-10.44); Carbon Dioxide 30 mmol/L (22-29); Chloride 101 mmol/L (98-107); Estimated GFR-MDRD 18; Glucose 141 mg/dL (70-105); Potassium 4.2 mmol/L (3.5-5.1); Sodium 137 mmol/L (136-145)
[2018-09-08 07:22] VITALS: BP 134/77; TEMP 98.3
[2018-09-08] MEDS: Carvedilol 6.25 MG TAB PO SCH (08:10)
[2018-09-08] MEDS: Amlodipine 10 MG TAB PO SCH (08:10)
[2018-09-08] MEDS: Losartan 25 MG TAB PO SCH (08:10)
[2018-09-08] MEDS: hydrALAZINE 25 MG TAB PO SCH ×2 (08:10→12:49)
[2018-09-08] MEDS: HumuLIN 70/30 (300 UNITS/3 ML VIAL) SC SCH (08:11)
[2018-09-08] MEDS: Heparin 5,000 UNITS/ML VIAL SC SCH (08:11)
--- NOTE | 2018-09-08 12:23 | PRG ---
DATE OF SERVICE: 09/08/2018 SUBJECTIVE: A 33-year-old gentleman being seen for end-stage renal disease. The patient tolerated dialysis well. OBJECTIVE: CONSTITUTIONAL: Awake, alert, in no acute distress. VITAL SIGNS: Afebrile. Pulse 94, breathing 16, blood pressure 134/77. GENERAL APPEARANCE AND MENTAL STATUS: Fair. HEAD/NECK: Normocephalic. Atraumatic. EYES: EOMI. No deformity. EARS: Clear. No ulcers. NOSE: Intact. No lesions. MOUTH: Clear. No discharge. THROAT: Clear. No exudate. LUNGS: Clear. No crackles. CARDIAC: S1, S2. No rub. ABDOMEN: Benign. Bowel sounds positive. GENITALIA/RECTUM: Aguirre absent. BACK/EXTREMITIES: Edema 0+. NEUROLOGICAL: Alert and motor intact. LABORATORY DATA: Show hemoglobin 8.6. ASSESSMENT AND PLAN: 1. Stage 6 chronic kidney disease, continue hemodialysis. 2. Hypertension, stable. 3. Anemia, stable. 4. Medication based on glomerular filtration rate, appropriate. Job ID: [id number]
--- NOTE | 2018-09-08 13:56 | PDOC.PN ---
- Subjective Encounter Start Date: 09/08/18 Encounter Start Time: 13:55 Patient seen and examined, no new issues or complaints - Objective Resuscitation Status - Order Detail: 08/28/18 10:41 Resuscitation Status Routine Resuscitation Status: DNAR: NO Resuscitation Discussed with: Patient Additional comments: Patient states the only machine he'd like to be on if needed is the dialysis machine, otherwise states that he does not want to have chest compressions or intubation Vital Signs & Weight: Vital Signs (12 hours) Temp Pulse Resp BP BP Pulse Ox 09/08/18 08:10 94 134/77 09/08/18 07:20 98.3 F 94 16 134/77 99 Weight Admit Weight 169 lb 8 oz Weight 169 lb 8 oz I&O: 09/07/18 09/08/18 09/09/18 06:59 06:59 06:59 Intake Total 2510 Balance 2510 Result Diagrams: 09/04/18 04:58 09/08/18 06:00 Additional Labs: Accuchecks 09/08/18 09/08/18 09/07/18 11:40 05:17 20:17 POC Glucose 103 147 H 195 H 09/07/18 16:33 POC Glucose 139 H Phys Exam - Physical Examination Constitutional: NAD HEENT: PERRLA, moist MMs, sclera anicteric, TM's clear Neck: no nodes, no JVD, supple Respiratory: no wheezing, no rales, no rhonchi Cardiovascular: RRR, no significant murmur, no rub Gastrointestinal: soft, non-tender, no distention Musculoskeletal: no edema, pulses present Neurological: non-focal, normal sensation Dx/Plan (1) ESRD (end stage renal disease) Code(s): N18.6 - END STAGE RENAL DISEASE Status: Acute (2) Uncontrolled diabetes mellitus Code(s): E11.65 - TYPE 2 DIABETES MELLITUS WITH HYPERGLYCEMIA Status: Chronic Qualifiers: Diabetes mellitus type: type 2 (3) Hypertension Code(s): I10 - ESSENTIAL (PRIMARY) HYPERTENSION Status: Chronic - Plan * pending out patient HD arrangements * can DC once out patient HD arranged * continue current plan of care [facility]ithericka toney * case and plan d/w patient at [facility], he understood and agreed with this plan.
--- NOTE | 2018-09-09 02:57 | DIS ---
DATE OF ADMISSION: 08/28/2018 DATE OF DISCHARGE: 09/08/2018 ADMITTING DIAGNOSES: 1. Metabolic acidosis. 2. Hypertension. 3. Shortness of breath. 4. Acute kidney injury on chronic kidney disease, stage 5. 5. Congestive heart failure. DISCHARGE DIAGNOSES: 1. End-stage renal disease. 2. Hypertension, stable. 3. Shortness of breath, resolved. 4. Congestive heart failure, stable. HOSPITAL COURSE: This is a 33-year-old male, who was admitted to the hospital with past medical history known for renal disease, was admitted to the internal medicine team and sent to the [facility]. He is also followed closely by Nephrology and Pulmonary Critical Care. The patient was stabilized in the ICU, dialysis was initiated. The patient has clear end-stage renal disease. Case management and social work supervisor worked diligently to obtain findings for the patient. The patient had outpatient dialysis arrangement scheduled at [facility]. The patient was to follow up with [facility] a day after his discharge for his next dialysis care treatment. The patient was stable at a point in time on discharge, did not have any complaints or issues. DISPOSITION: Home. ACTIVITY: As tolerated with assistance as needed. DIET: Renal. CONDITION: Stable. PROGNOSIS: Good. FOLLOWUP: Follow up with PCP in about a week for further care. Follow up with Nephrology as well as in about a week and [facility] tomorrow for further care. Case and plan discussed with the patient at length, he understood and agreed with this plan. Job ID: [id number]
== END 2018-09-08 17:20 | disposition home or self-care (01) | DRG 674 ==
LOC: ERS 07:31 → ERHOLD 10:40 → IMCU/EMU 19:51 → T4-A 08-29 14:58
PROVIDERS: ADMIT Internal Medicine; ATTEND Internal Medicine
PROC: 0JH63XZ Insertion of Tunneled Vascular Access Device into Chest Subcutaneous Tissue and Fascia, Percutaneous Approach (ICD-10-PCS; 2018-08-28)
PROC: 02HV33Z Insertion of Infusion Device into Superior Vena Cava, Percutaneous Approach (ICD-10-PCS; 2018-08-28)
PROC: 5A1D70Z Performance of Urinary Filtration, Intermittent, Less than 6 Hours Per Day (ICD-10-PCS; 2018-08-28)
PROC: 5A1D70Z Performance of Urinary Filtration, Intermittent, Less than 6 Hours Per Day (ICD-10-PCS; 2018-08-29)
PROC: 5A1D70Z Performance of Urinary Filtration, Intermittent, Less than 6 Hours Per Day (ICD-10-PCS; 2018-08-31)
PROC: 031B09F Bypass Right Radial Artery to Lower Arm Vein with Autologous Venous Tissue, Open Approach (ICD-10-PCS; principal; 2018-09-01)
PROC: 05BD0ZZ Excision of Right Cephalic Vein, Open Approach (ICD-10-PCS; 2018-09-01)
PROC: 5A1D70Z Performance of Urinary Filtration, Intermittent, Less than 6 Hours Per Day (ICD-10-PCS; 2018-09-02)
PROC: 5A1D70Z Performance of Urinary Filtration, Intermittent, Less than 6 Hours Per Day (ICD-10-PCS; 2018-09-05)
PROC: 5A1D70Z Performance of Urinary Filtration, Intermittent, Less than 6 Hours Per Day (ICD-10-PCS; 2018-09-07)
DX: N17.9 Acute kidney failure, unspecified (principal); E87.2 Acidosis; F17.210 Nicotine dependence, cigarettes, uncomplicated; E11.22 Type 2 diabetes mellitus with diabetic chronic kidney disease; N18.6 End stage renal disease; I10 Essential (primary) hypertension; E11.65 Type 2 diabetes mellitus with hyperglycemia; Z66 Do not resuscitate; E11.319 Type 2 diabetes mellitus with unspecified diabetic retinopathy without macular edema; D63.1 Anemia in chronic kidney disease; E11.51 Type 2 diabetes mellitus with diabetic peripheral angiopathy without gangrene; H54.62 Unqualified visual loss, left eye, normal vision right eye; F12.90 Cannabis use, unspecified, uncomplicated; S81.802A Unspecified open wound, left lower leg, initial encounter; Z79.82 Long term (current) use of aspirin; Z79.4 Long term (current) use of insulin; Z79.899 Other long term (current) drug therapy; X58.XXXA Exposure to other specified factors, initial encounter
CPT/HCPCS: 36415; 36416; 71045; 76000; 80048; 82728; 83036; 83540; 83550; 83605; 83735; 83880; 83970; 84100; 85014; 85018; 85025; 86704; 86706; 86803; 87040; 87070; 87077; 87086; 87186; 87205; 87340; 90935; 93005; 93306; 93970; 96365; 96375; C1752; C1769; G0257; G0365; J0360; J0670; J1644; J1815; J2001; J2250; J2704; J2720; J3010; J3370; Q4081

== ENCOUNTER 2019-12-12 09:47 | Outpatient (CLI) | payer MEDICARE, MEDICAID ==
--- NOTE | 2019-12-12 10:37 | MMO ---
Bilateral MAMMO Bilat Diag DDI+ROB. CLINICAL HISTORY: Patient is 34 years old and is seen for diagnostic exam, in the left breast and lump or thickening in the right breast. The patient has no family history of breast cancer. The patient has no personal history of cancer. VIEWS: The views performed were: bilateral craniocaudal with tomosynthesis; bilateral mediolateral oblique with tomosynthesis; and bilateral mediolateral with tomosynthesis. This study has been interpreted with the assistance of computer-aided detection. MAMMOGRAM FINDINGS: There are scattered fibroglandular densities. Retroareolar density in both breasts is fairly symmetric and consistent with gynecomastia. There are no suspicious masses, suspicious calcifications, or new areas of architectural distortion. IMPRESSION: THERE IS NO MAMMOGRAPHIC EVIDENCE OF MALIGNANCY. THE RESULTS OF THIS EXAM WERE SENT TO THE PATIENT. ACR BI-RADS Category 2 - Benign finding MAMMOGRAPHY NOTE: 1. A negative mammogram report should not delay a biopsy if a dominant of clinically suspicious mass is present. 2. Approximately 10% to 15% of breast cancers are not detected by mammography. 3. Adenosis and dense breasts may obscure an underlying neoplasm. Reported by: MARIA FERNANDA YANEZ MD Electonically Signed: [id number]
== END 2019-12-12 09:48 | disposition home or self-care (01) ==
LOC: BICMAMMO 09:47
PROVIDERS: ATTEND Nurse Practitioner Family
DX: N63.20 Unspecified lump in the left breast, unspecified quadrant (principal)
CPT/HCPCS: 77066; G0279